=== PATIENT | female | born 1980 | race Caucasian/White ===

== ENCOUNTER 2016-10-18 02:46 | Inpatient (IN) | payer OTHER ==
[~2016-10-18] VITALS: Ht 167.6 cm; Wt 71.1 kg
[2016-10-18] VITALS (15 sets, daily range): BP systolic 103–154; BP diastolic 67–98; PULSE 124–160; TEMP 33.9–38.3; O2SAT 88–100; Ht 167.6 cm; Wt 71.1 kg
[2016-10-18] MEDS ORDERED: SODIUM CHLORIDE 0.9% 1000ML 1,000 ML IV STA ×2 (02:50→03:42)
[2016-10-18] MEDS ORDERED: NURSING VERBAL MED ORDER ONE ×2 (02:54→08:00)
[2016-10-18] MEDS ORDERED: NALOXONE HCL 0.4 MG/1 ML VIAL/CARP IV STA (02:57)
--- NOTE | 2016-10-18 03:08 | EMERGENCY ROOM VISIT NOTE ---
History Report prepared by Anai: Opal Tan Under the Supervision of: Dr. Umberto Thomason M.D. First contact with patient: 02:50 Stated Complaint: CARDIAC ARREST History of Present Illness The patient is a 36 year old female who presents to the Emergency Room with complaints of a sudden cardiac arrest that occurred prior to arrival. Per EMS the patient has a history of drug abuse and currently on Suboxone. They note that tonight, the patient was last seen well at 0045. EMS reports that the patient's family noted that the patient underwent seizure like activity and was not breathing. They report that the patient was blue upon arrival. EMS reports that the patient had vomited as well prior to arrival. They note that the patient was given 2 doses of epinephrine. The history is limited due to intubation. Source of History: patient History Limited By: intubation Onset: prior to arrival Position: other (global) Quality: other (cardiac arrest) Timing: other (sudden) Review of Systems History is limited due to intubation. Past Medical & Surgical Medical Problems: (1) Acute respiratory failure with hypoxia and hypercapnia unobtainable secondary to intubation Family History unobtainable secondary to intubation Social History Marital Status: in relationship Current/Historical Medications Scheduled Buprenorphine Hcl-Naloxone Hcl (Suboxone 8-2 Mg), 2 TABS SL DAILY Bupropion (Wellbutrin Sr), 150 MG PO BID Clonazepam (Klonopin), 1 MG PO BID Gabapentin (Neurontin), 1,200 MG PO TID Lamotrigine (Lamictal), 50 MG PO BID Omeprazole (Prilosec), 40 MG PO DAILY Phenytoin Sodium Extended (Phenytek), 100 MG PO BID Allergies Coded Allergies: No Known Allergies (Unverified , 10/18/16) Physical Exam Vital Signs Date Time Temp Pulse Resp B/P Pulse Ox O2 Delivery O2 Flow Rate FiO2 10/18/16 04:47 132 18 155/104 94 Mechanical Ventilator 60 10/18/16 04:43 124 18 152/114 94 Mechanical Ventilator 60 10/18/16 04:39 60 10/18/16 04:28 118 18 115/80 96 Mechanical Ventilator 60 10/18/16 04:13 112 18 124/81 98 Mechanical Ventilator 60 10/18/16 03:58 36.7 112 14 96/63 100 Mechanical Ventilator 60 10/18/16 03:48 110 14 137/76 100 Mechanical Ventilator 60 10/18/16 03:46 110 14 125/70 100 Mechanical Ventilator 60 10/18/16 03:38 108 14 71/41 100 Mechanical Ventilator 60 10/18/16 03:33 102 14 100 Mechanical Ventilator 60 10/18/16 03:28 36.4 112 14 88/55 100 Mechanical Ventilator 60 10/18/16 03:25 111 14 111/58 100 Mechanical Ventilator 80 10/18/16 03:10 110 12 87/48 100 Mechanical Ventilator 10/18/16 02:55 109 10/18/16 02:55 113 12 116/51 100 Mechanical Ventilator 10/18/16 02:55 80 10/18/16 02:53 36.4 109 12 54/33 100 Mechanical Ventilator Physical Exam GENERAL: Patient is unresponsive with a GCS 3T. HEENT: ET tube in place. Fixed, mildly enlarged pupils. No acute trauma, normocephalic atraumatic, mucous membranes moist, no nasal congestion, no scleral icterus. NECK: No stridor, no adenopathy, no meningismus, trachea is midline. LUNGS: No dyspnea. Clear to auscultation and equal bilaterally. No wheeze, no rhonchi. HEART: Regular rate and rhythm. No murmurs, rubs, gallops appreciated. ABDOMEN: Soft, nontender, bowel sounds positive, no masses appreciated, no peritonitis. BACK: No midline tenderness, no CVA tenderness EXTREMITIES: Normal motion all extremities, no cyanosis, no edema. NEUROLOGIC: Unresponsive GCS 3T. No movement of extremities. Pulses in all 4 extremities. SKIN: Track cummings on the bilateral forearms. No rash, no jaundice, no diaphoresis. Medical Decision & Procedures ER Provider Diagnostic Interpretation: X ray results and stated below per my interpretation and radiologist interpretation. Other radiology results and stated below per my review and radiologist interpretation: 1 view chest x-ray: mildly rotated, normal heart size, ET tube just past level of clavicles, no infiltrate, no effusion, gastric tube laying in the stomach. CT Head: Diffuse loss of jones-white differentiation compatible with cerebral edema. Relative hyperdensity along with basal cisterns may represent pseudo- subarachnoid hemorrhage but cannot exclude subarachnoid hemorrhage. Paranasal sinus disease Radiologist: Valeria Jimenez MD Study ready at 0328 and initial results transmitted at 1738 Laboratory Results 10/18/16 02:58 Red Blood Count 4.83, Mean Corpuscular Volume 86.5, Mean Corpuscular Hemoglobin 28.0, Mean Corpuscular Hemoglobin Concent 32.3, Mean Platelet Volume 9.7 10/18/16 02:58 Test 10/18/16 02:51 10/18/16 02:58 10/18/16 03:00 10/18/16 04:00 Bedside Hemoglobin 14.6 g/dl (12.0-16.0) Bedside Hematocrit 43 % (37-47) Bedside Sodium 136 mEq/L (135-144) Bedside Potassium 3.9 mEq/L (3.3-5.0) Bedside Chloride 102 mEq/L (101-112) Bedside Total CO2 11 mEq/l (24-31) Bedside Blood Urea Nitrogen 3 mg/dl (7-18) Bedside Creatinine 1.2 mg/dl (0.6-1.3) Bedside Glucose (other) 374 mg/dl (70-99) Bedside Ionized Calcium (Rowan) 1.23 mmol/l (1.12-1.32) White Blood Count 21.14 K/uL (4.8-10.8) Red Blood Count 4.83 M/uL (4.2-5.4) Hemoglobin 13.5 g/dL (12.0-16.0) Hematocrit 41.8 % (37-47) Mean Corpuscular Volume 86.5 fL (80-100) Mean Corpuscular Hemoglobin 28.0 pg (25-34) Mean Corpuscular Hemoglobin Concent 32.3 g/dl (32-36) Platelet Count 315 K/uL (130-400) Mean Platelet Volume 9.7 fL (7.4-10.4) RDW Standard Deviation 43.9 fL (36.4-46.3) RDW Coefficient of Variation 13.7 % (11.5-14.5) Neutrophils % (Manual) 54.0 % Lymphocytes % (Manual) 31.3 % Monocytes % (Manual) 6.1 % Metamyelocytes % 4.3 % Myelocytes % 4.3 % Neutrophils # (Manual) 11.42 K/uL (1.4-6.5) Total Absolute Neutrophils 11.42 K/uL (1.4-6.5) Lymphocytes # (Manual) 6.62 K/uL (1.2-3.4) Total Absolute Lymphocytes 6.62 K/uL (1.2-3.4) Monocytes # (Manual) 1.29 K/uL (0.11-0.59) Metamyelocytes # 0.91 K/uL (0-0) Myelocytes # 0.91 K/uL (0-0) Echinocytes 1+ Prothrombin Time 12.3 SECONDS (9.0-12.0) Prothromb Time International Ratio 1.1 (0.9-1.1) Activated Partial Thromboplast Time 49.3 SECONDS (21.0-31.0) Partial Thromboplastin Ratio 1.9 Arterial Blood pH 6.86 (7.35-7.45) Arterial Blood Partial Pressure CO2 59 mmHg (35-46) Arterial Blood Partial Pressure O2 131 mm/Hg (80-95) Arterial Blood HCO3 10 mmol/L (19-24) Arterial Blood Oxygen Saturation 95.1 % (90-95) Arterial Blood Base Excess -23.6 mEq/L (-9-1.8) Arterial Blood Gas Delivery 80% Pelon Test POS (POS) Anion Gap 29.0 mmol/L (3-11) Est Creatinine Clear Calc Drug Dose 39.1 ml/min Estimated GFR () 34.5 Estimated GFR (Non- 29.7 BUN/Creatinine Ratio 2.7 (10-20) Calcium Level 9.1 mg/dl (8.5-10.1) Total Bilirubin 0.2 mg/dl (0.2-1) Direct Bilirubin < 0.1 mg/dl (0-0.2) Aspartate Amino Transf (AST/SGOT) 80 U/L (15-37) Alanine Aminotransferase (ALT/SGPT) 57 U/L (12-78) Alkaline Phosphatase 135 U/L (45-117) Troponin I 0.080 ng/ml (0-0.045) Total Protein 6.8 gm/dl (6.4-8.2) Albumin 3.4 gm/dl (3.4-5.0) Beta-Hydroxybutyric Acid 0.78 mg/dL (0.2-2.81) Valproic Acid (Depakene) Level < 3 mcg/ml (50-100) Ethyl Alcohol mg/dL < 3.0 mg/dl (0-3) Urine Test NEG (NEG) Urine Opiates Screen NEG (NEG) Urine Methadone, Qualitative NEG (NEG) Urine Barbiturates NEG (NEG) Urine Phencyclidine (PCP) Level NEG (NEG) Ur Amphetamine/Methamphetamine POS (NEG) MDMA (Ecstasy) Screen POS (NEG) Urine Benzodiazepines Screen NEG (NEG) Urine Cocaine Metabolite NEG (NEG) Urine Marijuana (THC) NEG (NEG) Gastric Fluid pH 1 Gastric Fluid Occult Blood POS (NEG) Test 10/18/16 04:15 10/18/16 04:23 Bedside Glucose 288 mg/dl (70-90) Urine Color YELLOW Urine Appearance CLEAR (CLEAR) Urine pH 7.0 (4.5-7.5) Urine Specific [place] 1.009 (1.000-1.030) Urine Protein 3+ (NEG) Urine Glucose (UA) 2+ (NEG) Urine Ketones NEG (NEG) Urine Occult Blood 3+ (NEG) Urine Nitrite NEG (NEG) Urine Bilirubin NEG (NEG) Urine Urobilinogen NEG (NEG) Urine Leukocyte Esterase NEG (NEG) Urine WBC (Auto) 10-30 /hpf (0-5) Urine RBC (Auto) >30 /hpf (0-4) Urine Hyaline Casts (Auto) 1-5 /lpf (0-5) Urine Epithelial Cells (Auto) >30 /lpf (0-5) Urine Bacteria (Auto) 1+ (NEG) Urine Renal Epithelial Cells 5-10 /lpf (0-5) Laboratory results as reviewed by me. Medications Administered Medications (Trade) Dose Ordered Sig/Joya Route Start Time Stop Time Status Last Admin Dose Admin Sodium Chloride (Nss 1000ml) 1,000 ml @ 999 mls/hr Q1H1M STAT IV 10/18/16 02:50 10/18/16 03:50 DC 10/18/16 02:50 999 MLS/HR Naloxone HCl 0.4 mg 0.4 mg NOW STAT IV 10/18/16 02:57 10/18/16 02:58 DC 10/18/16 02:54 0.4 MG Norepinephrine Bitartrate/ Dextrose (Levophed Inj/ D5W 500ml) 508 ml @ 0 mls/hr Q0M STAT IV 10/18/16 03:15 10/18/16 03:16 DC 10/18/16 03:45 57.8 MLS/HR Miscellaneous Information (Nursing Verbal Med Order) 1 ea ONE ONCE N/A 10/18/16 02:54 10/18/16 03:16 DC 10/18/16 02:54 1 EA Epinephrine HCl 0.5 mg 0.5 mg NOW STAT IV 10/18/16 03:23 10/18/16 03:24 DC 10/18/16 03:34 0.5 MG Sodium Chloride (Nss 1000ml) 1,000 ml @ 250 mls/hr Q4H STAT IV 10/18/16 03:42 10/18/16 04:23 DC 10/18/16 03:46 250 MLS/HR Piperacillin Sod/ Tazobactam Sod 4.5 gm 4.5 gm NOW STAT IV 10/18/16 03:56 10/18/16 03:57 DC 10/18/16 04:16 4.5 GM Vancomycin HCl 1000 mg/Sodium Chloride 270 ml @ 125 mls/hr NOW STAT IV 10/18/16 03:56 10/18/16 06:05 DC 10/18/16 04:29 125 MLS/HR Sodium Chloride 38.5 meq/Sodium Bicarbonate 150 meq/Sterile Water 1,150 ml @ 200 mls/hr Q5H45M IV 10/18/16 04:30 11/17/16 04:29 10/18/16 04:44 200 MLS/HR Pantoprazole Sodium 80 mg/ Dextrose 120 ml @ 480 mls/hr NOW STAT IV 10/18/16 04:36 10/18/16 04:50 DC 10/18/16 05:00 480 MLS/HR Pantoprazole Sodium/Dextrose (Protonix Inj/D5 100ml) 100 ml @ 20 mls/hr Q5H IV 10/18/16 04:45 10/18/16 09:44 10/18/16 05:00 20 MLS/HR ECG Indication: toxicologic Rate (beats per minute): 120 Rhythm: sinus tachycardia Findings: ST depression (deep lateral and inferior), no ectopy ED Course 0246: The patient was evaluated in room B1. A complete history and physical exam was performed. 0250: Upon reevaluation the patient is hypotensive. She was given half an amp of epinephrine and I ordered Sodium 1000 ml @ 999 mls/hr IV. 0257: I reevaluated the patient and instructed the nurses to give Narcan. Ordered Narcan Inj 0.4 mg IV. 0300: I reevaluated the patient and she did not react to the Narcan. 0305: I discussed the patient's case with her boyfriend. He said that the patient started having seizures around 2300, and does not believe that the patient hit her head. He denies the patient vomiting, but is unsure if the patient has been taking her seizure medications. 0310: Per nursing staff the patient's blood pressure is dropping. Another dose of epinephrine was given and the patient was taken to have a CT scan. 0315: Ordered Norepinephrine Bitartrate 8 mg/Dextrose 508 ml @ 0 mls/hr protocol IV. 0320: Nursing staff is attempting to get in contact with the patient's mother. 0323: Ordered Epinephrine HCl 0.5 mg IV. 0330: I reevaluated the patient and she has a blood pressure of 110/40 mmHg and a heart rate of 110 beats per minute. She also still has GCS 3T. 0332: I discussed the patients case with Dr. Hess, Intensive Care. She states that we should try transferring the patient to [facility] for further treatment if they have room, and if not, then we will evaluate the patient here. 0342: Ordered Sodium chloride 1000 ml @ 250 mls/hr IV. 0350: I discussed the patient's case with Dr. Olivares, Critical Care - [facility]. He states that there is no benefit to the patient being transferred to their facility. He suggests that the patient is monitored here. 0353: I rediscussed the patient's case with Dr. Hess, Intensive Care. She agrees to monitor the patient here for further treatment. She would like the patient's blood sugar to be redrawn and if it is still high we can start her on an insulin drip. She would additionally like blood cultures to be obtained and would also like the patient to be started on broad spectrum antibiotics. 0356: Ordered Vancomycin HCl 1000 mg/Sodium Chloride 270 ml @ 125 mls/hr IV, Zosyn IV 4.5 gm IV. 0357: I reevaluated the patient and her status is unchanged. I discussed the treatment plan with her family and they verbalized complete understanding and agreement. The patient will be evaluated for further treatment. 0407: I discussed the patients case with RADHA Nathan. He is going to evaluate the patient for further treatment. 0420: RADHA Nathan is at the bedside of the patient. 0436: Ordered Pantoprazole Sodium 80 mg/Dextrose 120 ml @ 480 mls/hr IV. 0450: The patient is still unresponsive. I rediscussed the patients case with mother in law. She states that the up until recently the patient was living in a long-term house in [place]. She was concerned the patient started using again. A prescription bottle of Vyvanse was missing from the house and the patient has a history of IV drug abuse. 0520: The patient is being transported to the ICU at this time. Medical Decision Differential: Toxicological, Infectious, Stroke, SAH, Trauma, Electrolyte Abnormality, Hypoglycemia, Alcohol Intoxication, Drug Intoxication, Cardiac Abnormality, Sepsis, Meningitis/Encephalitis, Trauma, Excited Delirium, Serotonin Syndrome, Psychiatric, amongst other pathologies entertained. 36 yr old female arrives via EMS after being found unresponsive without a pulse at home. Somewhat odd story with boyfriend who looks intoxicated/under influence stating she had possible seizure around 11pm followed by possibility of another one. Seems there is significant multi-hour time lag between this and when boyfriend realized she was not breathing. 911 contacted and patient received periodic compressions prior to EMS arrival. On EMS arrival patient in asystol without neuro response. IO placed, multiple rounds epi given, intubated with continuous compressions on arrival. Eventually with ROSC. Transported to ED with 1 L NSS en route along with half amp epi for hypotension. On arrival patient unresponsive, GCS 3T with no neuro response. Fixed pupils, no response to painful stimuli and no attempt at breaths. Hypotension thus given another epi. Given Narcan with no response. Does have what appear to be track cummings on forearms as well. Good breath sounds bilaterally. Abdomen is not distended. IO in place left tibia. OG tube placed revealing dark black heme positive stomach contents. Unclear if this is just from her likely prolonged down time and GI bleed from that, or possibly there is tongue laceration from seizure that I can not appreciated due to ET Tube in place. CXR with clear lungs, ET Tube in place and OG tube in stomach. Patient given further fluids and sent to CT. CT head with loss moses white and edema noted. Likely artifactual SAH given amount of edema. Regardless she is at present examining like brain and with amount of edema on CT, the pH of 6.8 (already 45 minutes post intubation), her condition is severely grave and I feel that she would not benefit from transfer to tertiary care facility. I discussed this with ICU here and at [facility] and we all agree that transfer would be of no benefit at this time. We will optimize treatment here and hope for improvement though it is felt this is likely a catastrophic condition. There is no acute intervention that would be done at tertiary care facility versus at this facility. She will likely need repeat CT head at some point along with possible EEG (though with amount of brain edema, whether this would be beneficial is questionable). We will start empiric abx due to leukocytosis, though no clear evidence of infection in UA nor CXR and her symptoms earlier in day do not correlate with meningitis. She does have elevated WBC, glucose both of which are likely reactive plus the epi that was given. We were unable to contact her mother, thus much of information was given and relayed to her boyfriend's mother who was bedside throughout much of this. Consults Time Called: 033 Consulting Physician: Dr. Hess, Intensive Care Returned Call: [phone] I discussed the patients case with Dr. Hess, Intensive Care. She states that we should try transferring the patient to [facility] for further treatment if they have room, and if not, then we will evaluate the patient here. Additional Consults: Time Called: 033 Consulted Physician: Dr. Olivares, Critical Care - [facility] Returned Call: [phone] Additional Comments: I discussed the patient's case with Dr. Olivares, Critical Care - [facility]. He states that there is no benefit to the patient being transferred to their facility. He suggests that the patient is monitored here. Time Called: 040 Consulted Physician: RADHA Nathan Returned Call: [phone] Additional Comments: I discussed the patients case with RADHA Nathan. He is going to evaluate the patient for further treatment. Impression Primary Impression: Respiratory arrest Additional Impressions: Hypotension Acidosis Hyperglycemia Anoxic cerebral edema Comatose Critical Care I have personally spent greater than 125 minutes of critical care time in the direct management of this patient. This was a life/limb threatening event. This includes time spent evaluating patient, direct bedside care, chart review, placing orders, interpretation of diagnostic studies, discussion with consultants, patient, and family members, as well as other required patient management activities. This 125 minutes is in excess of all separately billable procedures. Scribe Attestation The scribe's documentation has been prepared under my direction and personally reviewed by me in its entirety. I confirm that the note above accurately reflects all work, treatment, procedures, and medical decision making performed by me. Departure Information Dispostion Being Evaluated By Hospitalist Referrals Jeovanny Lozano D.O. (PCP) Problem Qualifiers Additional Impressions: Hypotension Hypotension type: unspecified hypotension type Qualified Codes: I95.9 - Hypotension, unspecified Comatose Coma depth: Nash coma 3-8 Coma timing: in the field (EMT or ambulance) Qualified Codes: R40.2431 - Nash coma scale score 3-8, in the field [emt or ambulance]
[2016-10-18 03:13] LABS: HEMATOCRIT 41.8 % (37-47); MEAN CELL VOLUME 86.5 fL (80-100); MEAN CORPUSCULAR HGB CONC 32.3 g/dl (32-36); MEAN PLATELET VOLUME 9.7 fL (7.4-10.4); PLATELET COUNT 315 K/uL (130-400); RED BLOOD COUNT 4.83 M/uL (4.2-5.4); WHITE BLOOD COUNT 21.14 K/uL (4.8-10.8)
[2016-10-18] MEDS ORDERED: NOREPINEPHRINE BIT INJ 8 MG in DEXTROSE 5% 500ML 500 ML IV STA (03:15)
[2016-10-18 03:16] LABS: ARTERIAL BLD GAS O2 SATURATION 95.1 % (90-95); ARTERIAL BLOOD GAS BASE EXCESS -23.6 mEq/L (-9-1.8); ARTERIAL BLOOD GAS HCO3 10 mmol/L (19-24); ARTERIAL BLOOD GAS PO2 131 mm/Hg (80-95)
[2016-10-18 03:18] LABS: ISTAT CREATININE 1.2 mg/dl (0.6-1.3); ISTAT HEMOGLOBIN 14.6 g/dl (12.0-16.0); ISTAT IONIZED CALCIUM 1.23 mmol/l (1.12-1.32)
[2016-10-18 03:19] LABS: ALLEN TEST POS (POS); O2 ADMINISTRATION 80%
[2016-10-18 03:22] LABS: ARTERIAL BLOOD GAS pH 6.86 (7.35-7.45)
[2016-10-18] MEDS ORDERED: EpINEphrine INJ 1MG/ML AMP 1 MG/ML AMP IV STA (03:23)
[2016-10-18 03:31] LABS: INR 1.1 (0.9-1.1); PARTIAL THROMBOPLASTIN RATIO 1.9; PROTHROMBIN TIME (PATIENT) 12.3 SECONDS (9.0-12.0)
[2016-10-18 03:35] LABS: BENZODIAZEPINE, URINE NEG (NEG); COCAINE,URINE NEG (NEG); PHENCYCLIDINE, URINE NEG (NEG)
[2016-10-18 03:41] LABS: ALKALINE PHOSPHATASE 135 U/L (45-117); ALT/SGPT 57 U/L (12-78); AST/SGOT 80 U/L (15-37); BLOOD UREA NITROGEN 6 mg/dl (7-18); BUN/CREATININE RATIO 2.7 (10-20); CALCIUM 9.1 mg/dl (8.5-10.1); CARBON DIOXIDE 9 mmol/L (21-32); CHLORIDE 100 mmol/L (98-107); GLUCOSE 397 mg/dl (70-99); POTASSIUM 4.1 mmol/L (3.5-5.1); SODIUM 138 mmol/L (136-145)
[2016-10-18] MEDS ORDERED: PIPERACILLIN/TAZOBACTAM 4.5 GM/100ML D5W IV STA (03:56)
[2016-10-18] MEDS ORDERED: VANCOMYCIN INJ 1,000 MG in SODIUM CHLORIDE 0.9% 250ML 250 ML IV STA (03:56)
[2016-10-18 03:58] LABS: COMPLETE YES; ECHINOCYTES 1+; LYMPH ABS # 6.62 K/uL (1.2-3.4); LYMPHOCYTE % 31.3 %; META ABS # 0.91 K/uL (0-0); METAMYELOCYTE % 4.3 %; MYELOCYTE % 4.3 %
[2016-10-18 03:59] LABS: BETA-HYDROXYBUTYRATE 0.78 mg/dL (0.2-2.81)
[2016-10-18] MEDS ORDERED: BUPR1SUB23 SL (03:59)
[2016-10-18] MEDS ORDERED: CLON1TAB3 PO (04:00)
[2016-10-18] MEDS ORDERED: GABA1CAP5 PO (04:02)
[2016-10-18] MEDS ORDERED: LAMO25TA PO (04:03)
[2016-10-18] MEDS ORDERED: OMEP40CA PO (04:03)
[2016-10-18] MEDS ORDERED: PHEN300C PO (04:05)
[2016-10-18] MEDS ORDERED: PHEN200C PO (04:05)
[2016-10-18] MEDS ORDERED: BUPR-79 PO (04:06)
[2016-10-18 04:12] LABS: GASTRIC OCCULT BLOOD POS (NEG); GASTRIC OCCULT BLOOD PH 1
[2016-10-18] MEDS ORDERED: SOD CHLOR 14.6% 2.5MEQ/ML 38.5 MEQ, SODIUM BICARBONATE 8.4% INJ 150 MEQ in STERILE WATE... IV SCH (04:15)
[2016-10-18 04:28] LABS: PREG INTERNAL NEGATIVE QC NEG CLEAR BACKGROUND; PREG INTERNAL POSITIVE QC POS CONTROL LINE
[2016-10-18 04:31] LABS: URINE APPEARANCE CLEAR (CLEAR); URINE BILIRUBIN NEG (NEG); URINE COLOR YELLOW; URINE EPITHELIAL CELL AUTO >30 /lpf (0-5); URINE NITRITE NEG (NEG); URINE SPECIFIC GRAVITY 1.009 (1.000-1.030); UROBILINOGEN NEG (NEG); ZZURINE CULT IF INDIC CATH YES
[2016-10-18 04:32] LABS: MANUAL MICROSCOPIC REQUIRED? NO; REVIEW REQ? YES
[2016-10-18] MEDS ORDERED: PANTOprazole INJ 80 MG in DEXTROSE 5% 100ML IV STA (04:36)
[2016-10-18] MEDS: SOD CHLOR 14.6% 2.5MEQ/ML 38.5 MEQ, SODIUM BICARBONATE 8.4% INJ 150 MEQ in STERILE WATE... IV SCH ×2 (04:44→12:05)
[2016-10-18] MEDS ORDERED: ONDANSETRON INJ 2 MG/ML 2 ML VIAL IV PRN (04:45)
[2016-10-18] MEDS ORDERED: GLUCOSE 10 TABS/TUBE PO PRN (04:45)
[2016-10-18] MEDS ORDERED: GLUCAGON FOR INJ 1 MG VIAL SQ PRN (04:45)
[2016-10-18] MEDS ORDERED: DEXTROSE 50% 50 ML SYR IV PRN (04:45)
[2016-10-18] MEDS ORDERED: ACETAMINOPHEN IV 100 ML IV PRN (04:45)
[2016-10-18] MEDS ORDERED: GLUCOSE 40% GEL 15 GM TUBE PO PRN (04:45)
[2016-10-18] MEDS ORDERED: PANTOprazole INJ 40 MG in DEXTROSE 5% 100ML IV SCH ×2 (04:45→09:45)
[2016-10-18] MEDS ORDERED: INSULIN ASPART 100 UNITS/ML 3 ML PEN SC SCH ×4 (06:45→18:00)
--- NOTE | 2016-10-18 07:09 | History and Physical ---
History & Physical Date & Time of Service: Oct 18, 2016 at 06:56 Chief Complaint: Acute Respiratory Failure With Hypoxia And Primary Care Physician: No Doctor, Assigned History of Present Illness Source: hospital records The patient is a 36-year-old female who presents emergency department after having been found by her significant other to be nonresponsive. She was last seen well approximately 2 hours prior to being found to be nonresponsive, not breathing and without a pulse by her boyfriend. EMS was called that time, and the report that upon arrival patient was blue. The patient has a history of drug abuse and was currently on Suboxone. She was noted to have vomited prior to EMS arrival. In the field the patient was given 2 doses of epinephrine and was intubated. Her history of present illness is limited due to intubated state. Social History Smoking Status: Unknown if Ever Smoked Marital Status: in relationship Allergies Coded Allergies: No Known Allergies (Unverified , 10/18/16) Home Medications Scheduled Buprenorphine Hcl-Naloxone Hcl (Suboxone 8-2 Mg), 2 TABS SL DAILY Bupropion (Wellbutrin Sr), 150 MG PO BID Clonazepam (Klonopin), 1 MG PO BID Gabapentin (Neurontin), 1,200 MG PO TID Lamotrigine (Lamictal), 50 MG PO BID Omeprazole (Prilosec), 40 MG PO DAILY Phenytoin Sodium Extended (Phenytek), 100 MG PO BID Review of Systems Review of systems is limited due to intubated state Physical Exam Vital Signs Date Time Temp Pulse Resp B/P Pulse Ox O2 Delivery O2 Flow Rate FiO2 10/18/16 06:18 Mechanical Ventilator 60 10/18/16 06:18 33.9 124 18 117/87 92 Mechanical Ventilator 60 10/18/16 06:15 33.9 124 18 93 Mechanical Ventilator 60 10/18/16 06:13 33.9 125 18 121/90 93 Mechanical Ventilator 60 10/18/16 06:00 33.9 125 18 91 Mechanical Ventilator 60 10/18/16 05:58 33.9 126 18 118/88 92 Mechanical Ventilator 60 10/18/16 05:45 125 18 88 Mechanical Ventilator 60 10/18/16 05:43 126 16 132/89 Mechanical Ventilator 60 10/18/16 05:30 60 10/18/16 05:15 125 18 107/79 91 Mechanical Ventilator 60 10/18/16 05:15 125 18 107/79 91 10/18/16 05:00 126 18 82/64 92 Mechanical Ventilator 60 10/18/16 04:47 132 18 155/104 94 Mechanical Ventilator 60 10/18/16 04:43 124 18 152/114 94 Mechanical Ventilator 60 10/18/16 04:39 60 10/18/16 04:28 118 18 115/80 96 Mechanical Ventilator 60 10/18/16 04:13 112 18 124/81 98 Mechanical Ventilator 60 10/18/16 03:58 36.7 112 14 96/63 100 Mechanical Ventilator 60 10/18/16 03:48 110 14 137/76 100 Mechanical Ventilator 60 10/18/16 03:46 110 14 125/70 100 Mechanical Ventilator 60 10/18/16 03:38 108 14 71/41 100 Mechanical Ventilator 60 10/18/16 03:33 102 14 100 Mechanical Ventilator 60 10/18/16 03:28 36.4 112 14 88/55 100 Mechanical Ventilator 60 10/18/16 03:25 111 14 111/58 100 Mechanical Ventilator 80 10/18/16 03:10 110 12 87/48 100 Mechanical Ventilator 10/18/16 02:55 109 10/18/16 02:55 113 12 116/51 100 Mechanical Ventilator 10/18/16 02:55 80 10/18/16 02:53 36.4 109 12 54/33 100 Mechanical Ventilator The patient is on the ventilator, nonresponsive. HEENT--PERRL, OG tube in place, mucous membranes and oropharynx dry. Neck--no JVD or bruits. Heart--normal S1 and S2, no extra beats, no murmurs, rubs or gallops. Lungs--clear bilaterally. On the ventilator. Abdomen--normal bowel sounds and soft, nondistended. Extremities--no cyanosis, clubbing or edema. There are good distal pulses b/l. Dermatologic--normal skin turgor, normal color, warm and dry, no abnormal lymph nodes, no rash. Neurologic--deferred Rheumatologic--deferred Psychiatric--deferred Diagnostics Laboratory Results Results Past 24 Hours Test 10/18/16 02:51 10/18/16 02:58 10/18/16 03:00 10/18/16 04:00 Range/Units Bedside Hemoglobin 14.6 12.0-16.0 g/dl Bedside Hematocrit 43 37-47 % Bedside Sodium 136 135-144 mEq/L Bedside Potassium 3.9 3.3-5.0 mEq/L Bedside Chloride 102 101-112 mEq/L Bedside Total CO2 11 24-31 mEq/l Anion Gap 28.0 29.0 3-11 mmol/L Bedside Blood Urea Nitrogen 3 7-18 mg/dl Bedside Creatinine 1.2 0.6-1.3 mg/dl Bedside Glucose (other) 374 70-99 mg/dl Bedside Ionized Calcium (Rowan) 1.23 1.12-1.32 mmol/l White Blood Count 21.14 4.8-10.8 K/uL Red Blood Count 4.83 4.2-5.4 M/uL Hemoglobin 13.5 12.0-16.0 g/dL Hematocrit 41.8 37-47 % Mean Corpuscular Volume 86.5 80-100 fL Mean Corpuscular Hemoglobin 28.0 25-34 pg Mean Corpuscular Hemoglobin Concent 32.3 32-36 g/dl Platelet Count 315 130-400 K/uL Mean Platelet Volume 9.7 7.4-10.4 fL RDW Standard Deviation 43.9 36.4-46.3 fL RDW Coefficient of Variation 13.7 11.5-14.5 % Neutrophils % (Manual) 54.0 % Lymphocytes % (Manual) 31.3 % Monocytes % (Manual) 6.1 % Metamyelocytes % 4.3 % Myelocytes % 4.3 % Neutrophils # (Manual) 11.42 1.4-6.5 K/uL Total Absolute Neutrophils 11.42 1.4-6.5 K/uL Lymphocytes # (Manual) 6.62 1.2-3.4 K/uL Total Absolute Lymphocytes 6.62 1.2-3.4 K/uL Monocytes # (Manual) 1.29 0.11-0.59 K/uL Metamyelocytes # 0.91 0-0 K/uL Myelocytes # 0.91 0-0 K/uL Echinocytes 1+ Prothrombin Time 12.3 9.0-12.0 SECONDS Prothromb Time International Ratio 1.1 0.9-1.1 Activated Partial Thromboplast Time 49.3 21.0-31.0 SECONDS Partial Thromboplastin Ratio 1.9 Arterial Blood pH 6.86 7.35-7.45 Arterial Blood Partial Pressure CO2 59 35-46 mmHg Arterial Blood Partial Pressure O2 131 80-95 mm/Hg Arterial Blood HCO3 10 19-24 mmol/L Arterial Blood Oxygen Saturation 95.1 90-95 % Arterial Blood Base Excess -23.6 -9-1.8 mEq/L Arterial Blood Gas Delivery 80% Pelon Test POS POS Sodium Level 138 136-145 mmol/L Potassium Level 4.1 3.5-5.1 mmol/L Chloride Level 100 98-107 mmol/L Carbon Dioxide Level 9 21-32 mmol/L Blood Urea Nitrogen 6 7-18 mg/dl Creatinine 2.10 0.60-1.20 mg/dl Est Creatinine Clear Calc Drug Dose 39.1 ml/min Estimated GFR () 34.5 Estimated GFR (Non- 29.7 BUN/Creatinine Ratio 2.7 10-20 Random Glucose 397 70-99 mg/dl Calcium Level 9.1 8.5-10.1 mg/dl Total Bilirubin 0.2 0.2-1 mg/dl Direct Bilirubin < 0.1 0-0.2 mg/dl Aspartate Amino Transf (AST/SGOT) 80 15-37 U/L Alanine Aminotransferase (ALT/SGPT) 57 12-78 U/L Alkaline Phosphatase 135 45-117 U/L Troponin I 0.080 0-0.045 ng/ml Total Protein 6.8 6.4-8.2 gm/dl Albumin 3.4 3.4-5.0 gm/dl Beta-Hydroxybutyric Acid 0.78 0.2-2.81 mg/dL Valproic Acid (Depakene) Level < 3 50-100 mcg/ml Ethyl Alcohol mg/dL < 3.0 0-3 mg/dl Urine Test NEG NEG Urine Opiates Screen NEG NEG Urine Methadone, Qualitative NEG NEG Urine Barbiturates NEG NEG Urine Phencyclidine (PCP) Level NEG NEG Ur Amphetamine/Methamphetamine POS NEG MDMA (Ecstasy) Screen POS NEG Urine Benzodiazepines Screen NEG NEG Urine Cocaine Metabolite NEG NEG Urine Marijuana (THC) NEG NEG Gastric Fluid pH 1 Gastric Fluid Occult Blood POS NEG Test 10/18/16 04:15 10/18/16 04:23 Range/Units Bedside Glucose 288 70-90 mg/dl Urine Color YELLOW Urine Appearance CLEAR CLEAR Urine pH 7.0 4.5-7.5 Urine Specific [place] 1.009 1.000-1.030 Urine Protein 3+ NEG Urine Glucose (UA) 2+ NEG Urine Ketones NEG NEG Urine Occult Blood 3+ NEG Urine Nitrite NEG NEG Urine Bilirubin NEG NEG Urine Urobilinogen NEG NEG Urine Leukocyte Esterase NEG NEG Urine WBC (Auto) 10-30 0-5 /hpf Urine RBC (Auto) >30 0-4 /hpf Urine Hyaline Casts (Auto) 1-5 0-5 /lpf Urine Epithelial Cells (Auto) >30 0-5 /lpf Urine Bacteria (Auto) 1+ NEG Urine Renal Epithelial Cells 5-10 0-5 /lpf Microbiology Results 10/18/16 Blood Culture, Received Pending 10/18/16 Blood Culture, Received Pending 10/18/16 MRSA DNA Surveillance Screen, Received Pending 10/18/16 Urine Culture, Received Pending Impression Assessment and Plan Acute respiratory failure with hypoxia and hypercapnia, status post intubation in the field, with administration of 2 doses of epinephrine--the patient will be admitted to the ICU. Her pH of 6.86 after being on the ventilator for 45 minutes is a very poor prognosis. CT of the head shows significant cerebral edema with the likelihood brain . We'll consult Dr. Hess, lamp developer, and neurology to perform brain protocol. The ventilator is been adjusted while emergency department, and I have started her on 1/4 normal saline with 3 Amps of bicarbonate at 200 ML's per hour. She'll be on vancomycin IV per renal dosing, Zosyn 3.375 mg IV every 6 hours. Drug abuse history--hold Suboxone 2 tablets sublingual daily. Anxiety/depression/seizure disorder-- hold Wellbutrin, Klonopin, gabapentin, Lamictal, Phenytek. Start phenytoin 100 milligrams IV twice a day, and add Keppra 500 mg IV twice a day. Upper GI bleed--start Protonix bolus and drip protocol. Acute renal failure--We'll follow serial laboratories CBC with differential and BMP, magnesium. Level of Care Critical Care Advanced Directives Existing Advance Directive: No Existing Living Will: No Existing Power of Residential Sales Rep: No Resuscitation Status FULL RESUSCITATION VTE Prophylaxis VTE Risk Assessment Done? Y/N: Yes Risk Level: High Given or contraindicated: SCD's
[2016-10-18] MEDS ORDERED: VANCOMYCIN CONSULT ACTIVE PRN (07:11)
[2016-10-18] MEDS ORDERED: INFLUENZA VIRUS QUAD VACCINE 0.5 ML SYR IM. ONE (07:15)
[2016-10-18] MEDS ORDERED: PIPERACILL/TAZOBAC CONSULT ACTIVE PRN (07:15)
[2016-10-18] MEDS ORDERED: INFLUENZA ADMINISTRATION CHARGE ONE (07:15)
[2016-10-18 07:26] LABS: HEMATOCRIT 44.9 % (37-47); MEAN CELL VOLUME 83.3 fL (80-100); MEAN CORPUSCULAR HEMOGLOBIN 27.6 pg (25-34); MEAN PLATELET VOLUME 9.1 fL (7.4-10.4); PLATELET COUNT 292 K/uL (130-400); RED BLOOD COUNT 5.39 M/uL (4.2-5.4); WHITE BLOOD COUNT 29.22 K/uL (4.8-10.8)
[2016-10-18 07:28] LABS: MEAN CORPUSCULAR HGB CONC 33.2 g/dl (32-36)
[2016-10-18 07:35] LABS: INR 1.6 (0.9-1.1); PARTIAL THROMBOPLASTIN RATIO 1.3; PROTHROMBIN TIME (PATIENT) 17.3 SECONDS (9.0-12.0)
--- NOTE | 2016-10-18 07:39 | Progress Note ---
Subjective Date of Service: Oct 18, 2016. Subjective unfortunate case of 36 F with history of seizure disorder and past history of substance abuse, who sustained a cardiopulmonary arrest and now is ventilated with concern for severe anoxic brain injury. Events leading up to EMS arrival involve the patient possibly having some seizures at home but upon discovery by EMS was cyanotic pt is not responsive to stimuli but also not posturing, treated with antiepileptic meds and antibiotics in er Problem List Medical Problems: (1) Acidosis Status: Acute (2) Anoxic cerebral edema Status: Acute (3) Comatose Status: Acute (4) Hyperglycemia Status: Acute (5) Hypotension Status: Acute (6) Respiratory arrest Status: Acute (7) Unresponsive Status: Acute Review of Systems unresponsive state Objective Vital Signs Date Time Temp Pulse Resp B/P Pulse Ox O2 Delivery O2 Flow Rate FiO2 10/18/16 06:18 Mechanical Ventilator 60 10/18/16 06:18 33.9 124 18 117/87 92 Mechanical Ventilator 60 10/18/16 06:15 33.9 124 18 93 Mechanical Ventilator 60 10/18/16 06:13 33.9 125 18 121/90 93 Mechanical Ventilator 60 10/18/16 06:00 33.9 125 18 91 Mechanical Ventilator 60 10/18/16 05:58 33.9 126 18 118/88 92 Mechanical Ventilator 60 10/18/16 05:45 125 18 88 Mechanical Ventilator 60 10/18/16 05:43 126 16 132/89 Mechanical Ventilator 60 10/18/16 05:30 60 10/18/16 05:15 125 18 107/79 91 Mechanical Ventilator 60 10/18/16 05:15 125 18 107/79 91 10/18/16 05:00 126 18 82/64 92 Mechanical Ventilator 60 10/18/16 04:47 132 18 155/104 94 Mechanical Ventilator 60 10/18/16 04:43 124 18 152/114 94 Mechanical Ventilator 60 10/18/16 04:39 60 10/18/16 04:28 118 18 115/80 96 Mechanical Ventilator 60 10/18/16 04:13 112 18 124/81 98 Mechanical Ventilator 60 10/18/16 03:58 36.7 112 14 96/63 100 Mechanical Ventilator 60 10/18/16 03:48 110 14 137/76 100 Mechanical Ventilator 60 10/18/16 03:46 110 14 125/70 100 Mechanical Ventilator 60 10/18/16 03:38 108 14 71/41 100 Mechanical Ventilator 60 10/18/16 03:33 102 14 100 Mechanical Ventilator 60 10/18/16 03:28 36.4 112 14 88/55 100 Mechanical Ventilator 60 10/18/16 03:25 111 14 111/58 100 Mechanical Ventilator 80 10/18/16 03:10 110 12 87/48 100 Mechanical Ventilator 10/18/16 02:55 109 10/18/16 02:55 113 12 116/51 100 Mechanical Ventilator 10/18/16 02:55 80 10/18/16 02:53 36.4 109 12 54/33 100 Mechanical Ventilator Physical Exam General Appearance: WD/WN, + severe distress Eyes: + pertinent finding (pupils large and unreactive) Neck: no JVD, trachea midline Respiratory/Chest: + decreased breath sounds, + rhonchi Cardiovascular: + tachycardia, + systolic murmur Abdomen: soft, + abnormal bowel sounds Laboratory Results Last 24 Hours Test 10/18/16 02:51 10/18/16 02:58 10/18/16 03:00 10/18/16 04:00 Bedside Hemoglobin 14.6 g/dl Bedside Hematocrit 43 % Bedside Sodium 136 mEq/L Bedside Potassium 3.9 mEq/L Bedside Chloride 102 mEq/L Bedside Total CO2 11 mEq/l Anion Gap 28.0 mmol/L 29.0 mmol/L Bedside Blood Urea Nitrogen 3 mg/dl Bedside Creatinine 1.2 mg/dl Bedside Glucose (other) 374 mg/dl Bedside Ionized Calcium (Rowan) 1.23 mmol/l White Blood Count 21.14 K/uL Red Blood Count 4.83 M/uL Hemoglobin 13.5 g/dL Hematocrit 41.8 % Mean Corpuscular Volume 86.5 fL Mean Corpuscular Hemoglobin 28.0 pg Mean Corpuscular Hemoglobin Concent 32.3 g/dl Platelet Count 315 K/uL Mean Platelet Volume 9.7 fL RDW Standard Deviation 43.9 fL RDW Coefficient of Variation 13.7 % Neutrophils % (Manual) 54.0 % Lymphocytes % (Manual) 31.3 % Monocytes % (Manual) 6.1 % Metamyelocytes % 4.3 % Myelocytes % 4.3 % Neutrophils # (Manual) 11.42 K/uL Total Absolute Neutrophils 11.42 K/uL Lymphocytes # (Manual) 6.62 K/uL Total Absolute Lymphocytes 6.62 K/uL Monocytes # (Manual) 1.29 K/uL Metamyelocytes # 0.91 K/uL Myelocytes # 0.91 K/uL Echinocytes 1+ Prothrombin Time 12.3 SECONDS Prothromb Time International Ratio 1.1 Activated Partial Thromboplast Time 49.3 SECONDS Partial Thromboplastin Ratio 1.9 Arterial Blood pH 6.86 Arterial Blood Partial Pressure CO2 59 mmHg Arterial Blood Partial Pressure O2 131 mm/Hg Arterial Blood HCO3 10 mmol/L Arterial Blood Oxygen Saturation 95.1 % Arterial Blood Base Excess -23.6 mEq/L Arterial Blood Gas Delivery 80% Pelon Test POS Sodium Level 138 mmol/L Potassium Level 4.1 mmol/L Chloride Level 100 mmol/L Carbon Dioxide Level 9 mmol/L Blood Urea Nitrogen 6 mg/dl Creatinine 2.10 mg/dl Est Creatinine Clear Calc Drug Dose 39.1 ml/min Estimated GFR () 34.5 Estimated GFR (Non- 29.7 BUN/Creatinine Ratio 2.7 Random Glucose 397 mg/dl Calcium Level 9.1 mg/dl Total Bilirubin 0.2 mg/dl Direct Bilirubin < 0.1 mg/dl Aspartate Amino Transf (AST/SGOT) 80 U/L Alanine Aminotransferase (ALT/SGPT) 57 U/L Alkaline Phosphatase 135 U/L Troponin I 0.080 ng/ml Total Protein 6.8 gm/dl Albumin 3.4 gm/dl Beta-Hydroxybutyric Acid 0.78 mg/dL Valproic Acid (Depakene) Level < 3 mcg/ml Ethyl Alcohol mg/dL < 3.0 mg/dl Urine Test NEG Urine Opiates Screen NEG Urine Methadone, Qualitative NEG Urine Barbiturates NEG Urine Phencyclidine (PCP) Level NEG Ur Amphetamine/Methamphetamine POS MDMA (Ecstasy) Screen POS Urine Benzodiazepines Screen NEG Urine Cocaine Metabolite NEG Urine Marijuana (THC) NEG Gastric Fluid pH 1 Gastric Fluid Occult Blood POS Test 10/18/16 04:15 10/18/16 04:23 10/18/16 07:15 10/18/16 07:28 Bedside Glucose 288 mg/dl Urine Color YELLOW Urine Appearance CLEAR Urine pH 7.0 Urine Specific [place] 1.009 Urine Protein 3+ Urine Glucose (UA) 2+ Urine Ketones NEG Urine Occult Blood 3+ Urine Nitrite NEG Urine Bilirubin NEG Urine Urobilinogen NEG Urine Leukocyte Esterase NEG Urine WBC (Auto) 10-30 /hpf Urine RBC (Auto) >30 /hpf Urine Hyaline Casts (Auto) 1-5 /lpf Urine Epithelial Cells (Auto) >30 /lpf Urine Bacteria (Auto) 1+ Urine Renal Epithelial Cells 5-10 /lpf White Blood Count 29.22 K/uL Red Blood Count 5.39 M/uL Hemoglobin 14.9 g/dL Hematocrit 44.9 % Mean Corpuscular Volume 83.3 fL Mean Corpuscular Hemoglobin 27.6 pg Mean Corpuscular Hemoglobin Concent 33.2 g/dl RDW Standard Deviation 41.9 fL RDW Coefficient of Variation 13.8 % Platelet Count 292 K/uL Mean Platelet Volume 9.1 fL Prothrombin Time 17.3 SECONDS Prothromb Time International Ratio 1.6 Activated Partial Thromboplast Time 33.2 SECONDS Partial Thromboplastin Ratio 1.3 Assessment and Plan 36 F with acute respiratory failure with hypoxia and hypercapnia, status post intubation in the field, Acute hypercapnic Respiratory failure. CT of the head shows significant cerebral edema with the likelihood brain . We'll consult Dr. Hess, scrap hooker, and neurology to perform brain protocol. The ventilator is been adjusted while emergency department to help counter act severe acidosis, Bicarb GTT, vancomycin IV per renal dosing, Zosyn 3.375 mg IV every 6 hours. Drug abuse history--hold Suboxone 2 tablets sublingual daily. Anxiety/depression/seizure disorder-- hold Wellbutrin, Klonopin, gabapentin, Lamictal, Phenytek. Started phenytoin 100 milligrams IV twice a day, and add Keppra 500 mg IV twice a day. Upper GI bleed--start Protonix bolus and drip protocol. Acute renal failure--We'll follow serial laboratories CBC with differential and BMP, magnesium. Out look is extremely poor and family has been made aware
[2016-10-18] MEDS: ARTIFICIAL TEARS OP SOLN OP SCH ×6 (07:50→16:09)
[2016-10-18 07:56] LABS: BUN/CREATININE RATIO 5.1 (10-20); CALCIUM 7.3 mg/dl (8.5-10.1); CREATININE 1.6 mg/dl (0.60-1.20); MAGNESIUM 3.3 mg/dl (1.8-2.4); PHOSPHORUS 4.6 mg/dl (2.5-4.9)
[2016-10-18 08:08] LABS: ISTAT ARTERIAL BLOOD GAS HCO3 18 meq/L (19-24); ISTAT ARTERIAL BLOOD GAS PCO2 61 mmHg (35-46); ISTAT ARTERIAL BLOOD GAS PO2 88 mmHg (80-95); ISTAT ARTERIAL BLOOD GAS pH 7.08 (7.35-7.45); ISTAT CARBON DIOXIDE 20 mEq/l (24-31); ISTAT DELIVERY SYSTEM Ventilator; ISTAT FIO2 80 %; ISTAT PEEP 10; ISTAT RATE 18; ISTAT SITE Art Line; VE 8.3; Vt 500
--- NOTE | 2016-10-18 08:08 | DIAGNOSTIC IMAGING REPORT ---
CT OF THE HEAD WITHOUT CONTRAST CLINICAL HISTORY: Altered mental status. Cardiac arrest. COMPARISON STUDY: No previous studies for comparison. CT DOSE: 614.27 mGy.cm TECHNIQUE: Helical axial images of the head were obtained without IV contrast. Automated exposure control was utilized for the study. FINDINGS: There is diffuse loss of jones-white differentiation consistent with cerebral edema. There is relative hyperdensity along the basilar cisterns and within the fissures. This is likely artifactual. The ventricular system is small. There is no calvarial fracture. There is a small air-fluid level within the right maxillary sinus. There are secretions. There is no calvarial fracture. IMPRESSION: 1. Diffuse loss of jones-white differentiation consistent with cerebral edema which could be seen in the setting of hypoxic-ischemic cerebral injury. 2. Areas of relative increased attenuation are likely artifactual and suggest pseudo subarachnoid hemorrhage. No definite intracranial hemorrhage. Electronically signed by: Tulio Coello M.D. 10/18/2016 8:06 AM Dictated Date/Time: 10/18/2016 8:00 AM
--- NOTE | 2016-10-18 08:08 | DIAGNOSTIC IMAGING REPORT ---
CHEST ONE VIEW PORTABLE HISTORY: Altered mental status. COMPARISON: None. FINDINGS: Nasogastric tube terminates in the stomach. Endotracheal tube terminates approximately 4 cm from the naren. No pneumothorax. No pleural effusions. The heart is normal in size. The lungs are clear. No evidence for pulmonary edema. IMPRESSION: Satisfactory support line placement. Electronically signed by: Shant Spicer M.D. 10/18/2016 8:06 AM Dictated Date/Time: 10/18/2016 8:04 AM
--- NOTE | 2016-10-18 08:10 | CRITICAL CARE CONSULTATION ---
DATE OF CONSULTATION: 10/18/2016 DATE OF CONSULTATION: 10/18/2016. CHIEF COMPLAINT: Seizure. HISTORY OF PRESENT ILLNESS: The patient is a 36-year-old woman with a history of seizure disorder, depression and drug abuse who presented to the Emergency Department via EMS early this morning. The history is very unclear at this point with regard to the events that led up to her boyfriend calling 911. From what I have been able to gather from the chart and the patient's friend who spoke to the boyfriend, the patient had 3 seizures last night. She is known to have a seizure disorder and may have had her first seizure around 11:00 p.m. She had a total of 3 seizures and after the third seizure at some point it was noted that she was not breathing. EMS was summoned and the patient's friend reports that he thinks it may have taken 20-40 minutes for an ambulance to arrive. It is unclear to me how long or if chest compressions were performed. According to the Emergency Department documentation, the patient was blue when EMS arrived. She was in asystole and was given 2 doses of epinephrine by EMS. In the Emergency Department, she was unresponsive and hypotensive. She was given a total of another milligram of epinephrine as well as 0.4 mg of Narcan. She may have vomited at some point. There is a question as to whether or not she has been taking her medications. She was started on norepinephrine and received a normal saline bolus. Initially, she was given a liter and then was started at 250 mL per hour. Her NG tube drainage was very dark and Gastroccult positive. She was started on a Protonix infusion after a bolus. She underwent CT scan of the brain showing diffuse loss of jones-white differentiation compatible with cerebral edema. Relative hyperdensity along the basal cisterns may represent pseudo subarachnoid hemorrhage, but cannot exclude subarachnoid hemorrhage parasinus disease. I discussed the patient briefly with the ER attending and we elected to call [facility] to see if they thought there was any role for continuous EEG monitoring. They felt that she would not require or receive continuous EEG monitoring, so she was not transported to their facility. She is now in the intensive care unit. PAST MEDICAL HISTORY: Depression, seizure disorder, drug abuse. Her friend with whom she lives believes that she has been clean for about a year. PAST SURGICAL HISTORY: Unknown. ALLERGIES: Unknown. MEDICATIONS: Suboxone 8/2 mg 2 tabs sublingual daily, bupropion 150 mg p.o. b.i.d., clonazepam 1 mg p.o. b.i.d., gabapentin 1200 mg p.o. t.i.d., Lamictal 50 mg b.i.d., omeprazole 40 mg daily, phenytoin extended release 100 mg p.o. b.i.d. SOCIAL HISTORY: She has been living with her boyfriend at her boyfriend's friend's house and also at her boyfriend's mother's home. She is unemployed and seeking disability for her seizures. She smokes 3/4 of a pack of cigarettes per day and drinks alcohol occasionally. She has at least 3 children of which she does not have custody but supervised visits. FAMILY HISTORY: Unknown. REVIEW OF SYSTEMS: Not obtainable secondary to her intubated state and no family present. PHYSICAL EXAMINATION: VITAL SIGNS: Present temperature 33.9, blood pressure 82-117/70s-90s, pulse 112-124, respiratory rate 18, oxygen saturation 88-100%. VENTILATOR SETTINGS: Assist control rate 18, tidal volume 500, 80% FIO2, PEEP 5. HEAD, EYES, EARS, NOSE, AND THROAT: Pupils are fixed and dilated. There is an endotracheal tube and orogastric tube in place. Orogastric tube is draining coffee ground material. CHEST: Has symmetric expansion. LUNGS: Rhonchorous bilaterally with occasional expiratory wheezes. HEART: Tachycardic, regular. No murmurs. ABDOMEN: Soft, nondistended, no hepatosplenomegaly. Bowel sounds absent. EXTREMITIES: Cool with 1+ dorsalis and radial pulses bilaterally. No edema with the exception of in the hands. I do not note any track cummings on the extremities. NEUROLOGIC: She is unresponsive to sternal rub or painful stimuli. LABORATORY DATA: White blood cell count 21.14, hemoglobin 13.5, hematocrit 41.8, platelets 315, pH 6.86, pCO2 of 59, pO2 131, HCO3 10. PT 12.3, INR 1.1, PTT 49.3. Sodium 138, potassium 4.1, chloride 100, CO2 9, BUN 6, creatinine 2.1, blood sugar 397 and 288, total bilirubin 0.2, AST 80, ALT 57, alkaline phosphatase 135. Troponin I 0.08, total protein 6.8, albumin 3.4. Beta hydroxybutyric acid 0.78. Urine drug screen is positive for amphetamines and ecstasy. Valproic acid level less than 3. Alcohol less than 3. Urinalysis with 10-30 white blood cells, greater than 30 red blood cells, greater than 30 epithelial cells, 1+ bacteria. Urine is negative. Blood cultures pending. Portable chest x-ray was reviewed and shows the endotracheal tube to be at the level of the clavicles and no definite infiltrate. EKG sinus tachycardia, right atrial enlargement, ST depressions anterolaterally. IMPRESSION: 1. Status post out of hospital cardiac arrest. 2. Acute respiratory failure, presumed secondary to #1. 3. Witnessed seizure and history of seizure disorder. 4. Cerebral edema and potentially prolonged down time and I suspect resulting in significant cerebral anoxia. 5. Elevated creatinine, I suspect acute kidney injury. 6. Gastrointestinal bleed. 7. Coagulopathy. 8. Severe metabolic acidosis secondary to #1. 9. Hyperglycemia without diagnosis of diabetes mellitus. 10. Abnormal EKG with mildly elevated troponin. PLAN: NEUROLOGIC: Hold any sedatives. The neurology service has been consulted. A stat EEG has also been ordered. I suspect she may be brain . CARDIOVASCULAR: Continue to titrate Levophed for a map of 70. Rule out myocardial infarction and repeat EKG. PULMONARY: She is now on 10 of PEEP, consider repeating the chest x-ray. GASTROINTESTINAL: Continue Protonix infusion. I do not think a GI consult at this point would be appropriate given her dismal neurologic status presently. RENAL: Urine output has actually been adequate. Continue sodium bicarbonate infusion. INFECTIOUS DISEASE: She may have vomited and aspirated and she has a leukocytosis. Continue broad-spectrum antibiotics that were started in the Emergency Department and culture sputum. Hopefully, we can obtain a little bit more information once family and boyfriend arrive, however I am very concerned that she has had a catastrophic anoxic injury. I placed a left femoral triple lumen catheter and arterial line emergently. Please see my procedure notes for any details. Critical care time excluding procedures is 1 hour. [facility]
[2016-10-18] MEDS ORDERED: NOREPINEPHRINE BIT INJ 8 MG in DEXTROSE 5% 500ML 500 ML IV PRN (08:15)
[2016-10-18] MEDS ORDERED: INSULIN PROTOCOL GOAL RANGE ONE (08:15)
[2016-10-18] MEDS ORDERED: MODERATE STRESS LEVEL ONE (08:15)
[2016-10-18] MEDS ORDERED: INSULIN IV INFUSION PROTOCOL SCH (08:40)
[2016-10-18 08:58] LABS: ALKALINE PHOSPHATASE 241 U/L (45-117); ALT/SGPT 137 U/L (12-78); AST/SGOT 331 U/L (15-37)
[2016-10-18] MEDS ORDERED: LEVETIRACETAM IV 500 MG in DEXTROSE 5% 100ML 100 ML IV SCH ×4 (09:00)
[2016-10-18] MEDS ORDERED: SODIUM CHLOR 0.9% 10ML FLUSH 20 ML in SYRINGE 0 ML IV SCH (09:00)
[2016-10-18] MEDS ORDERED: PHENYTOIN IV 100 MG in SYRINGE 0 ML IV SCH (09:00)
[2016-10-18] MEDS ORDERED: INSULIN REGULAR 250 UNITS in SODIUM CHLORIDE 0.9% 250ML 250 ML IV SCH (10:00)
[2016-10-18] MEDS ORDERED: INSULIN HUMAN REGULAR IV BOLUS 2 UNIT in SYRINGE 0 ML IV SCH (10:00)
[2016-10-18] MEDS ORDERED: VANCOMYCIN INJ 1,000 MG in SODIUM CHLORIDE 0.9% 250ML 250 ML IV SCH (10:00)
[2016-10-18] MEDS ORDERED: PIPERACILL/TAZOBAC IV 4.5 GM in DEXTROSE 5% 100ML 100 ML IV SCH (10:00)
--- NOTE | 2016-10-18 11:21 | Neurology Consultation ---
Neurology Consultation Date of Consultation: Oct 18, 2016. Attending Physician: Toni Rose M.D. Primary Care Physician: No Doctor, Assigned Reason for Consultation: Brain evaluation History of Present Illness Source: clinic records, hospital records, EMS Dorys Escamilla is a 36 yo F with history of bipolar disorder, depression, and potentially seizure disorder who presented to [facility] early this morning in cardiac arrest. History gathered from review of records, including outpatient records and PDMP, as the patient is currently intubated and unresponsive. The patient apparently was on Lamictal 50mg BID and phenytoin as an outpatient, and was scheduled for a Neurology appt in December with Dr Ann. There are no previous records of hospital visits to this facility. She apparently also was taking Wellbutrin and Clonazepam, and was on Suboxone as well. Although this story is unclear, our team was told the patient had been playing video games around 11pm, had a seizure, then once the seizure resolved was playing video games again, then had another seizure, and at some point went into asystole. She was last seen well at 0045. EMS was called and upon their arrival the patient was blue, and had vomited. She was intubated and given 2 doses of epinephrine. Upon arrival to the ED, she was receiving chest compressions, received a dose of Narcan but did not have a response, and a CT head was completed (results below, but overall shows anoxic brain injury). It was attempted for the patient to be transferred to a tertiary center by the ED and ICU teams but the accepting physicians reported she could be monitored here and did not require continuous EEG monitoring. Currently, she remains intubated, and is not making any purposeful movements. She has no reaction to pain, sound, or her name being called. EEG was completed , formal results pending. She is not on any sedatives or neuromuscular blockades. She remains on a Levophed, Protonix, Vancomycin, and Zosyn drips. She did receive therapeutic cooling initially but is now being warmed and her temperature is 37C. She is tachycardic and normotensive. Further evaluation for brain is noted in examination below. Full exam was completed by Dr Ann, please refer to her note/addendum as well. Past Medical/Surgical History Medical Problems: (1) Acidosis Status: Acute (2) Anoxic cerebral edema Status: Acute (3) Comatose Status: Acute (4) Hyperglycemia Status: Acute (5) Hypotension Status: Acute (6) Respiratory arrest Status: Acute (7) Unresponsive Status: Acute Family History Unknown Social History Apparently, has recovered from substance abuse, was living at a fpc house in [place] for a while. [id number] reports concern for missing bottle of Vyvanse and reports that may be a cause. Has 3 kids, ages ranging 11-16, who are apparently in custody of paternal grandparents. Smoking Status: Former smoker Alcohol Use: unknown Marital Status: in relationship Occupation Status: disabled Allergies Coded Allergies: No Known Allergies (Unverified , 10/18/16) Current Inpatient Medications Current Inpatient Medications Medications (Trade) Dose Ordered Sig/Joya Route Start Time Stop Time Status Last Admin Dose Admin Sodium Chloride 38.5 meq/Sodium Bicarbonate 150 meq/Sterile Water 1,150 ml @ 200 mls/hr Q5H45M IV 10/18/16 04:30 11/17/16 04:29 10/18/16 04:44 200 MLS/HR Levetiracetam/ Dextrose (Keppra Iv/D5 100ml) 105 ml @ 420 mls/hr Q12 IV 10/18/16 09:00 11/17/16 08:59 10/18/16 09:42 420 MLS/HR Ondansetron HCl 4 mg 4 mg Q6H PRN IV 10/18/16 04:45 11/17/16 04:44 Acetaminophen (Ofirmev Iv) 100 ml @ 400 mls/hr Q8H PRN IV 10/18/16 04:45 11/17/16 04:44 Glucose (Glucose 40% Gel) UD PRN PO 10/18/16 04:45 11/17/16 04:44 Glucose (Glucose Chew Tab) 1 tabs UD PRN PO 10/18/16 04:45 11/17/16 04:44 Dextrose (Dextrose 50% 50ML Syringe) 50 ml UD PRN IV 10/18/16 04:45 11/17/16 04:44 Glucagon 1 mg 1 mg UD PRN SQ 10/18/16 04:45 11/17/16 04:44 Pantoprazole Sodium 40 mg/ Dextrose 100 ml @ 20 mls/hr Q5H IV 10/18/16 09:45 2/12/17 09:44 10/18/16 09:42 20 MLS/HR Phenytoin Sodium 100 mg/Syringe 2 ml @ 1 mls/min BID IV 10/18/16 09:00 11/17/16 08:59 10/18/16 09:42 1 MLS/MIN Sodium Chloride/ Syringe (Sodium Chloride 0.9% 10 ml Flush/ Syringe) 20 ml @ 0 mls/min BID IV 10/18/16 09:00 11/17/16 08:59 10/18/16 09:43 10 MLS/MIN Artificial Tears 2 drops 2 drops Q4H OP 10/18/16 07:00 11/17/16 06:59 10/18/16 07:50 2 DROPS Piperacillin Sod/ Tazobactam Sod/ Dextrose (Zosyn Iv/D5 100ml) 120 ml @ 30 mls/hr Q8H IV 10/18/16 10:00 10/25/16 09:59 10/18/16 09:43 30 MLS/HR Vancomycin HCl (Consult) 1 ea UD PRN N/A 10/18/16 07:11 11/17/16 07:10 Piperacillin Sod/ Tazobactam Sod 1 ea 1 ea UD PRN N/A 10/18/16 07:15 11/17/16 07:14 Norepinephrine Bitartrate/ Dextrose (Levophed Inj/ D5W 500ml) 508 ml @ 0 mls/hr Q0M PRN IV 10/18/16 08:15 11/17/16 08:14 Insulin Aspart SLIDING SCALE PCHS SC 10/18/16 12:00 11/17/16 11:59 Vancomycin HCl 1000 mg/Sodium Chloride 270 ml @ 125 mls/hr Q16H IV 10/18/16 10:00 10/25/16 03:59 10/18/16 10:11 125 MLS/HR Insulin Human Regular/Sodium Chloride (novoLIN-R/Nss 250ml) 252.5 ml @ 1.8 mls/hr DAILY@1130 IV 10/18/16 10:00 11/17/16 09:59 10/18/16 10:11 1.8 MLS/HR Review of Systems Unable to complete ROS due to mental status Physical Exam Vital Signs (Past 24 Hrs): Date Time Temp Pulse Resp B/P Pulse Ox O2 Delivery O2 Flow Rate FiO2 10/18/16 10:00 36.7 157 22 107/88 94 Mechanical Ventilator 80 10/18/16 08:00 34.0 142 22 103/76 92 Mechanical Ventilator 80 10/18/16 06:55 60 10/18/16 06:18 Mechanical Ventilator 60 10/18/16 06:18 33.9 124 18 117/87 92 Mechanical Ventilator 60 10/18/16 06:15 33.9 124 18 93 Mechanical Ventilator 60 10/18/16 06:13 33.9 125 18 121/90 93 Mechanical Ventilator 60 10/18/16 06:00 33.9 125 18 91 Mechanical Ventilator 60 10/18/16 05:58 33.9 126 18 118/88 92 Mechanical Ventilator 60 10/18/16 05:45 125 18 88 Mechanical Ventilator 60 10/18/16 05:43 126 16 132/89 Mechanical Ventilator 60 10/18/16 05:30 60 10/18/16 05:15 125 18 107/79 91 Mechanical Ventilator 60 10/18/16 05:15 125 18 107/79 91 10/18/16 05:00 126 18 82/64 92 Mechanical Ventilator 60 10/18/16 04:47 132 18 155/104 94 Mechanical Ventilator 60 10/18/16 04:43 124 18 152/114 94 Mechanical Ventilator 60 10/18/16 04:39 60 10/18/16 04:28 118 18 115/80 96 Mechanical Ventilator 60 10/18/16 04:13 112 18 124/81 98 Mechanical Ventilator 60 10/18/16 03:58 36.7 112 14 96/63 100 Mechanical Ventilator 60 10/18/16 03:48 110 14 137/76 100 Mechanical Ventilator 60 10/18/16 03:46 110 14 125/70 100 Mechanical Ventilator 60 10/18/16 03:38 108 14 71/41 100 Mechanical Ventilator 60 10/18/16 03:33 102 14 100 Mechanical Ventilator 60 10/18/16 03:28 36.4 112 14 88/55 100 Mechanical Ventilator 60 10/18/16 03:25 111 14 111/58 100 Mechanical Ventilator 80 10/18/16 03:10 110 12 87/48 100 Mechanical Ventilator 10/18/16 02:55 109 10/18/16 02:55 113 12 116/51 100 Mechanical Ventilator 10/18/16 02:55 80 10/18/16 02:53 36.4 109 12 54/33 100 Mechanical Ventilator General: Intubated, unresponsive Pupils: Fixed, dilated 5-6mm. No extraocular movements. No nystagmus. No corneal reflex. ENT: OG tube with dark / bloody discharge. CVS: Tachycardic. No murmur audible. Lungs: Hoarse sounds diffusely Abd: Distended. Unable to elicit tenderness. NEURO: Absence of pupillary response with bright light is noted. Absence of ocular movements with oculocephalic testing is noted. After irrigation with ice water in each ear canal, which did not elicit any movements , there were still no eye movements after 1 minute of observation. Absence of corneal reflex Absence of facial muscle movements to deep pressure of supra-orbital ridge No gag reflex per nursing staff. Apnea test not completed. EEG completed, final read pending. Reflexes in all modalities absent. Laboratory Results Past 24 Hours: 10/18/16 07:15 10/18/16 07:15 Test 10/18/16 02:51 10/18/16 02:58 10/18/16 03:00 10/18/16 04:00 Bedside Hemoglobin 14.6 g/dl (12.0-16.0) Bedside Hematocrit 43 % (37-47) Bedside Sodium 136 mEq/L (135-144) Bedside Potassium 3.9 mEq/L (3.3-5.0) Bedside Chloride 102 mEq/L (101-112) Bedside Total CO2 11 mEq/l (24-31) Bedside Blood Urea Nitrogen 3 mg/dl (7-18) Bedside Creatinine 1.2 mg/dl (0.6-1.3) Bedside Glucose (other) 374 mg/dl (70-99) Bedside Ionized Calcium (Rowan) 1.23 mmol/l (1.12-1.32) Neutrophils % (Manual) 54.0 % Lymphocytes % (Manual) 31.3 % Monocytes % (Manual) 6.1 % Metamyelocytes % 4.3 % Myelocytes % 4.3 % Neutrophils # (Manual) 11.42 K/uL (1.4-6.5) Total Absolute Neutrophils 11.42 K/uL (1.4-6.5) Lymphocytes # (Manual) 6.62 K/uL (1.2-3.4) Total Absolute Lymphocytes 6.62 K/uL (1.2-3.4) Monocytes # (Manual) 1.29 K/uL (0.11-0.59) Metamyelocytes # 0.91 K/uL (0-0) Myelocytes # 0.91 K/uL (0-0) Echinocytes 1+ Arterial Blood pH 6.86 (7.35-7.45) Arterial Blood Partial Pressure CO2 59 mmHg (35-46) Arterial Blood Partial Pressure O2 131 mm/Hg (80-95) Arterial Blood HCO3 10 mmol/L (19-24) Arterial Blood Oxygen Saturation 95.1 % (90-95) Arterial Blood Base Excess -23.6 mEq/L (-9-1.8) Arterial Blood Gas Delivery 80% Pelon Test POS (POS) Troponin I 0.080 ng/ml (0-0.045) Beta-Hydroxybutyric Acid 0.78 mg/dL (0.2-2.81) Valproic Acid (Depakene) Level < 3 mcg/ml (50-100) Ethyl Alcohol mg/dL < 3.0 mg/dl (0-3) Urine Test NEG (NEG) Urine Opiates Screen NEG (NEG) Urine Methadone, Qualitative NEG (NEG) Urine Barbiturates NEG (NEG) Urine Phencyclidine (PCP) Level NEG (NEG) Ur Amphetamine/Methamphetamine POS (NEG) MDMA (Ecstasy) Screen POS (NEG) Urine Benzodiazepines Screen NEG (NEG) Urine Cocaine Metabolite NEG (NEG) Urine Marijuana (THC) NEG (NEG) Gastric Fluid pH 1 Gastric Fluid Occult Blood POS (NEG) Test 10/18/16 04:15 10/18/16 04:23 10/18/16 07:15 10/18/16 07:55 Bedside Glucose 288 mg/dl (70-90) Urine Color YELLOW Urine Appearance CLEAR (CLEAR) Urine pH 7.0 (4.5-7.5) Urine Specific [place] 1.009 (1.000-1.030) Urine Protein 3+ (NEG) Urine Glucose (UA) 2+ (NEG) Urine Ketones NEG (NEG) Urine Occult Blood 3+ (NEG) Urine Nitrite NEG (NEG) Urine Bilirubin NEG (NEG) Urine Urobilinogen NEG (NEG) Urine Leukocyte Esterase NEG (NEG) Urine WBC (Auto) 10-30 /hpf (0-5) Urine RBC (Auto) >30 /hpf (0-4) Urine Hyaline Casts (Auto) 1-5 /lpf (0-5) Urine Epithelial Cells (Auto) >30 /lpf (0-5) Urine Bacteria (Auto) 1+ (NEG) Urine Renal Epithelial Cells 5-10 /lpf (0-5) Red Blood Count 5.39 M/uL (4.2-5.4) Mean Corpuscular Volume 83.3 fL (80-100) Mean Corpuscular Hemoglobin 27.6 pg (25-34) Mean Corpuscular Hemoglobin Concent 33.2 g/dl (32-36) RDW Standard Deviation 41.9 fL (36.4-46.3) RDW Coefficient of Variation 13.8 % (11.5-14.5) Mean Platelet Volume 9.1 fL (7.4-10.4) Prothrombin Time 17.3 SECONDS (9.0-12.0) Prothromb Time International Ratio 1.6 (0.9-1.1) Activated Partial Thromboplast Time 33.2 SECONDS (21.0-31.0) Partial Thromboplastin Ratio 1.3 Anion Gap 12.0 mmol/L (3-11) Est Creatinine Clear Calc Drug Dose 45.9 ml/min Estimated GFR () 47.9 Estimated GFR (Non- 41.3 BUN/Creatinine Ratio 5.1 (10-20) Lactic Acid Level 4.0 mmol/L (0.4-2.0) Calcium Level 7.3 mg/dl (8.5-10.1) Phosphorus Level 4.6 mg/dl (2.5-4.9) Magnesium Level 3.3 mg/dl (1.8-2.4) Total Bilirubin 0.3 mg/dl (0.2-1) Direct Bilirubin < 0.1 mg/dl (0-0.2) Aspartate Amino Transf (AST/SGOT) 331 U/L (15-37) Alanine Aminotransferase (ALT/SGPT) 137 U/L (12-78) Alkaline Phosphatase 241 U/L (45-117) Total Protein 6.7 gm/dl (6.4-8.2) Albumin 3.3 gm/dl (3.4-5.0) Blood Gas Sample Site Art Line Bedside Blood Gas pH (LAB) 7.08 (7.35-7.45) Bedside Blood Gas pCO2 (LAB) 61 mmHg (35-46) Bedside Blood Gas pO2 (LAB) 88 mmHg (80-95) Bedside Blood Gas HCO3 (LAB) 18 meq/L (19-24) Bedside Blood Gas Total CO2 20 mEq/l (24-31) Bedside Blood Gas Base Excess (LAB) -12.0 meq/L (-9-1.8) Bedside Blood Gas O2 Saturation 92.0 % (90-95) Pelon Test NA Oxygen Delivery Device Ventilator Bedside Oxygen Rate (breaths/min) 18 Blood Gas Minute Ventilation 8.3 Bedside FiO2 80 % Blood Gas Tidal Volume 500 Blood Gas PEEP 10 Date/Time Source Procedure Growth Status 10/18/16 00:00 Nasal MRSA DNA Surveillance Screen - Final Specimen Positive for MRSA by DNA Probe Complete Imaging CT Head: CT OF THE HEAD WITHOUT CONTRAST CLINICAL HISTORY: Altered mental status. Cardiac arrest. COMPARISON STUDY: No previous studies for comparison. CT DOSE: 614.27 mGy.cm TECHNIQUE: Helical axial images of the head were obtained without IV contrast. Automated exposure control was utilized for the study. FINDINGS: There is diffuse loss of jones-white differentiation consistent with cerebral edema. There is relative hyperdensity along the basilar cisterns and within the fissures. This is likely artifactual. The ventricular system is small. There is no calvarial fracture. There is a small air-fluid level within the right maxillary sinus. There are secretions. There is no calvarial fracture. IMPRESSION: 1. Diffuse loss of jones-white differentiation consistent with cerebral edema which could be seen in the setting of hypoxic-ischemic cerebral injury. 2. Areas of relative increased attenuation are likely artifactual and suggest pseudo subarachnoid hemorrhage. No definite intracranial hemorrhage. CXR: CHEST ONE VIEW PORTABLE HISTORY: Altered mental status. COMPARISON: None. FINDINGS: Nasogastric tube terminates in the stomach. Endotracheal tube terminates approximately 4 cm from the naren. No pneumothorax. No pleural effusions. The heart is normal in size. The lungs are clear. No evidence for pulmonary edema. IMPRESSION: Satisfactory support line placement. Impression 36 year old female, with history of bipolar disorder, seizure disorder, and substance abuse, who presented in cardiac arrest, and has unfortunately suffered brain on clinical examination. Plan As per primary team. Please refer to Dr Staples note / Addendum. April Schuler MD, PGY-2 Family & Community Medicine Resident Neurology attending addendum: Patient was seen and examined with resident. Pertinent portions of the exam and physical were reviewed and verified by myself. Patient presented in cardiopulmonary arrest. Reported seizure activity beforehand. Clinic chart was reviewed (but only had one outpatient recovery care note in it.) I'm uncertain whether the patient had true epilepsy with unprovoked seizures based on the limited history that I have. Patient was taking Lamictal for bipolar disorder. I do not have any history that the patient was ever seen by a neurologist in the past for her diagnosis of seizures and do not know how definite that diagnosis was as she has other risk factors for provoked seizures including being on Wellbutrin, benzodiazepine use , and history of substance abuse including Vyvanse (which can cause seizures). CT of the head report and images reviewed by myself and has loss of jones white junction suggesting diffuse anoxic brain injury. EEG was read by myself and showed diffuse attenuation with rare possible low amplitude delta and theta activity. Exam: Exam was performed between 9 and 9:30 AM There was no sedation or neuromuscular blocking agents. Patient's temperature was 36.8C at the time of the examination. No metabolic derangements that that should significantly affect exam. Mental status: Patient is obtunded and unresponsive. The patient did not respond to voice, sound, or noxious stimuli from deep nail bed pressure, sternal rub, and orbital pressure. Pupils were 7-8 mm and equal. There was no pupil reaction to light. Absent corneal response bilaterally. Absent jaw reflux No ocular cephalic response Auditory canals were patent. No response to cold calorics bilaterally. No gag response to endotracheal suction No biceps, brachioradialis, or patellar reflexes obtained. No response to plantar stimulation. There was no response or movement to deep nailbed pressure in all 4 extremities. Assessment and recommendations: Overall my exam is consistent with neurological brain . I did not do an apnea test and it is my understanding that the ICU attending will repeat a brain examination with apnea test. Neurological prognosis is dismal and I do not anticipate any meaningful neurological recovery. Thank you for allowing me to participate in this patient's care. If there is any questions or concerns, feel free to call/page me Resident Tracking Resident Involvement: Resident Care Provided Care Provided: Adult Hospital Medicine (Neurology)
--- NOTE | 2016-10-18 12:04 | EEG Procedure Note ---
EEG Procedure Note Date of Service Oct 18, 2016. Start / End Times Start Time: 7:44 AM End Time: 8:04 AM Referring Physician Heather Ann History This is a 36-year-old female who presented with cardiopulmonary arrest, seizure , and anoxic brain injury. EEG to rule out nonconvulsive status. Home Medication List Scheduled Buprenorphine Hcl-Naloxone Hcl (Suboxone 8-2 Mg), 2 TABS SL DAILY Bupropion (Wellbutrin Sr), 150 MG PO BID Clonazepam (Klonopin), 1 MG PO BID Gabapentin (Neurontin), 1,200 MG PO TID Lamotrigine (Lamictal), 50 MG PO BID Omeprazole (Prilosec), 40 MG PO DAILY Phenytoin Sodium Extended (Phenytek), 100 MG PO BID Inpatient Medication List Current Inpatient Medications Medications (Trade) Dose Ordered Sig/Joya Route Start Time Stop Time Status Last Admin Dose Admin Sodium Chloride 38.5 meq/Sodium Bicarbonate 150 meq/Sterile Water 1,150 ml @ 200 mls/hr Q5H45M IV 10/18/16 04:30 11/17/16 04:29 10/18/16 04:44 200 MLS/HR Levetiracetam/ Dextrose (Keppra Iv/D5 100ml) 105 ml @ 420 mls/hr Q12 IV 10/18/16 09:00 11/17/16 08:59 10/18/16 09:42 420 MLS/HR Ondansetron HCl 4 mg 4 mg Q6H PRN IV 10/18/16 04:45 11/17/16 04:44 Acetaminophen (Ofirmev Iv) 100 ml @ 400 mls/hr Q8H PRN IV 10/18/16 04:45 11/17/16 04:44 Glucose (Glucose 40% Gel) UD PRN PO 10/18/16 04:45 11/17/16 04:44 Glucose (Glucose Chew Tab) 1 tabs UD PRN PO 10/18/16 04:45 11/17/16 04:44 Dextrose (Dextrose 50% 50ML Syringe) 50 ml UD PRN IV 10/18/16 04:45 11/17/16 04:44 Glucagon 1 mg 1 mg UD PRN SQ 10/18/16 04:45 11/17/16 04:44 Pantoprazole Sodium 40 mg/ Dextrose 100 ml @ 20 mls/hr Q5H IV 10/18/16 09:45 11/17/16 09:44 10/18/16 09:42 20 MLS/HR Phenytoin Sodium 100 mg/Syringe 2 ml @ 1 mls/min BID IV 10/18/16 09:00 11/17/16 08:59 10/18/16 09:42 1 MLS/MIN Sodium Chloride/ Syringe (Sodium Chloride 0.9% 10 ml Flush/ Syringe) 20 ml @ 0 mls/min BID IV 10/18/16 09:00 11/17/16 08:59 10/18/16 09:43 10 MLS/MIN Artificial Tears 2 drops 2 drops Q4H OP 10/18/16 07:00 11/17/16 06:59 10/18/16 07:50 2 DROPS Piperacillin Sod/ Tazobactam Sod/ Dextrose (Zosyn Iv/D5 100ml) 120 ml @ 30 mls/hr Q8H IV 10/18/16 10:00 10/25/16 09:59 10/18/16 09:43 30 MLS/HR Vancomycin HCl (Consult) 1 ea UD PRN N/A 10/18/16 07:11 11/17/16 07:10 Piperacillin Sod/ Tazobactam Sod 1 ea 1 ea UD PRN N/A 10/18/16 07:15 11/17/16 07:14 Norepinephrine Bitartrate/ Dextrose (Levophed Inj/ D5W 500ml) 508 ml @ 0 mls/hr Q0M PRN IV 10/18/16 08:15 11/17/16 08:14 10/18/16 11:08 68 MLS/HR Insulin Aspart SLIDING SCALE PCHS SC 10/18/16 12:00 11/17/16 11:59 Vancomycin HCl 1000 mg/Sodium Chloride 270 ml @ 125 mls/hr Q16H IV 10/18/16 10:00 10/25/16 03:59 10/18/16 10:11 125 MLS/HR Insulin Human Regular/Sodium Chloride (novoLIN-R/Nss 250ml) 252.5 ml @ 1.8 mls/hr DAILY@1130 IV 10/18/16 10:00 11/17/16 09:59 10/18/16 10:11 1.8 MLS/HR Description This is a 21 electrode EEG with a single channel dedicated to limited EKG. The electrodes were placed in accordance with the International 10-20 system. At the start of this recording the patient was intubated and unresponsive. There was no sedating medications. The patient is on Dilantin and Keppra. Background showed no organization and was diffusely attenuated (<15uV and often <10uV). There was rare brief low to moderate amplitude delta and theta frequencies seen in the background. Hyperventilation photic stimulation were not done. There was no state changes. There was no clear variability or reactivity. Interpretation This is an abnormal routine EEG secondary to severe background disorganization and attenuation. There was no electrographic seizures or epileptiform discharges. Clinical Correlation This EEG indicates severe diffuse cerebral dysfunction and would be consistent with a diffuse anoxic brain injury. This EEG was not done as a brain confirmatory EEG, nor would it meet EEG brain criteria as there was rare episodes of what appeared to be possible delta or theta activity (in the ICU setting could also potentially be artifact).
[2016-10-18 12:28] LABS: HEMATOCRIT 44.9 % (37-47)
--- NOTE | 2016-10-18 12:38 | Pharmacy Progress Note ---
Pharmacy Antibiotic Consult Date of Service: Oct 18, 2016. Pharmacy Dosing Scope Pharmacy is consulted to initiate vancomycin and piperacillin/tazobactam IV dosing therapy, order appropriate labs and adjust drug dose/frequency. Subjective The patient is a 36 year old female admitted on Oct 18, 2016 at 04:50. Objective Height (Feet): 5 Height (Inches): 6.00 Weight (Kilograms): 71.100 Lab Results (24hrs): Laboratory Tests Test 10/18/16 02:58 10/18/16 07:15 BUN/Creatinine Ratio 2.7 5.1 Blood Urea Nitrogen 6 mg/dl 8 mg/dl Creatinine 2.10 mg/dl 1.60 mg/dl White Blood Count 21.14 K/uL 29.22 K/uL Red Blood Count 4.83 M/uL Hemoglobin 13.5 g/dL Hematocrit 41.8 % Mean Corpuscular Volume 86.5 fL Mean Corpuscular Hemoglobin 28.0 pg Mean Corpuscular Hemoglobin Concent 32.3 g/dl Platelet Count 315 K/uL Mean Platelet Volume 9.7 fL Micro Results: Item Value Date Time MRSA DNA Surveillance Screen - Final Complete 10/18/16 0000 Nasal Specimen Positive for MRSA by DNA Probe Blood Culture Received 10/18/16 0415 Blood Pending Blood Culture Received 10/18/16 0415 Blood Pending Urine Culture Received 10/18/16 0423 Urine,Catheterized Pending Assessment & Plan Assessment: * 36 year old female with acute respiratory failure with hypoxia and hypercapnia , status post intubation in the field * patient with leukocytosis and questionable vomitus prior to arrival * to be started on empiric antibiotics in the form of vancomycin and piperacillin/tazobactam Plan: Vancomycin: * Loading dose: 1000 mg IV X 1 dose (given in ED) * Maintenance dose: 1000 mg IV every 16 hours * may need adjusted as renal function improves * trough level timing will be determined based on SCr on 10/19/16 Piperacillin/tazobactam: * Loading dose: 4.5 g IV x1 dose (given in ED) * Maintenance dose: 4.5 g IV every 8 hours (infused over 4 hours) * no dose adjustment needed for CrCl above 20mL/min Pharmacy will continue to follow and will adjust dose/frequency as necessary. Thank you
[2016-10-18 13:10] LABS: ISTAT ARTERIAL BLOOD GAS HCO3 22 meq/L (19-24); ISTAT ARTERIAL BLOOD GAS PCO2 59 mmHg (35-46); ISTAT ARTERIAL BLOOD GAS PO2 177 mmHg (80-95); ISTAT ARTERIAL BLOOD GAS pH 7.18 (7.35-7.45); ISTAT CARBON DIOXIDE 24 mEq/l (24-31); ISTAT DELIVERY SYSTEM Ventilator; ISTAT FIO2 80 %; ISTAT PEEP 10; ISTAT RATE 22; ISTAT SITE Art Line; VE 10.4; Vt 500
[2016-10-18 13:16] LABS: CKMB/CK RATIO 2.7 (0-3.0)
--- NOTE | 2016-10-18 13:23 | Pharmacy Progress Note ---
Glycemic Control Intl Consult Date of Service Oct 18, 2016. Scope Glycemic Pharmacist consulted by Dr Hess on 10/18/16 for glycemic control and to write orders per [facility] inpatient glycemic control protocol Objective Weight (Kilograms): 71.100 Accuchecks BSG (last 24hrs): Test 10/18/16 02:58 10/18/16 04:15 10/18/16 07:15 Random Glucose 397 mg/dl (70-99) 199 mg/dl (70-99) Bedside Glucose 288 mg/dl (70-90) Laboratory Data (last 24hrs) Test 10/18/16 02:51 10/18/16 02:58 10/18/16 07:15 Anion Gap 28.0 mmol/L 29.0 mmol/L 12.0 mmol/L BUN/Creatinine Ratio 2.7 5.1 Blood Urea Nitrogen 6 mg/dl 8 mg/dl Creatinine 2.10 mg/dl 1.60 mg/dl Potassium Level 4.1 mmol/L 4.0 mmol/L Sodium Level 138 mmol/L 141 mmol/L White Blood Count 21.14 K/uL 29.22 K/uL Red Blood Count 4.83 M/uL Hemoglobin 13.5 g/dL Hematocrit 41.8 % Mean Corpuscular Volume 86.5 fL Mean Corpuscular Hemoglobin 28.0 pg Mean Corpuscular Hemoglobin Concent 32.3 g/dl Platelet Count 315 K/uL Mean Platelet Volume 9.7 fL Recent Pertinent Medications Outpatient Anti-diabetic Regimen: * n/a The patient is currently receiving: * Basal insulin: none at this time * Correctional Insulin: NovoLog Correction per scale AC/HS Goal Range: Low 100 mg/dL - High 150 mg/dL Correction Factor: 30 mg/dL/unit * Prandial insulin: Per carb ratio of 1 unit per 10 grams CHO consumed Risk Factors for Insulin Resistance: * Steroids: none * Infection: ?aspiration pneumonia/sepsis - current regimen includes vancomycin and piperacillin/tazobactam * Pressors: norepinephrine * IVF: levetiracetam IV, 1/4NS+ bicarb, pantoprazole gtt * Recent Surgery n/a * Diet: NPO * Mechanical Ventilation: [employer] Assessment & Plan ASSESSMENT: * ADA & AACE recommend a goal blood sugar range 140-180 mg/dl for the majority of critically ill & non-critically ill patients. However, more stringent targets may be selected in individual cases. 10/18/16 * 36 year old female with acute respiratory failure with hypoxia and hypercapnia , status post intubation in the field * patient with leukocytosis and questionable vomitus prior to arrival * This morning, BSGs above goal range. currently critically ill and requiring intubation and IV vasopressors. * In the critical care setting, continuous IV insulin infusion has been shown to be the best method for achieving glycemic targets PLAN FOR INPATIENT GLYCEMIC CONTROL: * Starting IV insulin infusion per moderate stress protocol * Goal Range 140 - 180 mg/dl After initial bolus given, Ms Ma became hypoglycemia --> 1 amp of D50 given. At this time I have revised my plan and shared it with Nena. * Continue to hold insulin infusion and check BSGs hourly x2 * resume insulin infusion at a reduced rate of 1 mL/hr if BSG above 180mg/dL * if BSGs remain below 180mg/dL discontinue insulin infusion and transition back to NovoLog SQ every 6 hours with a goal range of 140-180mg/dL and a correction factor of 35mg/dL/unit. * Please note that the plan above was derived based on current level of insulin resistance and hospital stress. These recommendations are appropriate for inpatient admission only. Plan of care upon discharge will need to be reassessed to avoid potential outpatient hypo/hyperglycemia. Thank you.
[2016-10-18] MEDS ORDERED: PHARMACY GLYCEMIC MGMT CONSULT PRN (13:30)
[2016-10-18 14:45] LABS: HEMATOCRIT 45.5 % (37-47); MEAN CORPUSCULAR HEMOGLOBIN 28.6 pg (25-34); MEAN CORPUSCULAR HGB CONC 33.6 g/dl (32-36); MEAN PLATELET VOLUME 8.8 fL (7.4-10.4); PLATELET COUNT 151 K/uL (130-400); RED BLOOD COUNT 5.35 M/uL (4.2-5.4); WHITE BLOOD COUNT 38.93 K/uL (4.8-10.8)
[2016-10-18 15:12] LABS: BUN/CREATININE RATIO 6.6 (10-20); CALCIUM 6.9 mg/dl (8.5-10.1); CREATININE 2.2 mg/dl (0.60-1.20); POTASSIUM 3.4 mmol/L (3.5-5.1)
[2016-10-18 15:15] LABS: ISTAT ARTERIAL BLOOD GAS HCO3 22 meq/L (19-24); ISTAT ARTERIAL BLOOD GAS PCO2 51 mmHg (35-46); ISTAT ARTERIAL BLOOD GAS PO2 235 mmHg (80-95); ISTAT ARTERIAL BLOOD GAS pH 7.25 (7.35-7.45); ISTAT CARBON DIOXIDE 24 mEq/l (24-31); ISTAT DELIVERY SYSTEM Ventilator; ISTAT FIO2 80 %; ISTAT PEEP 8; ISTAT RATE 25; ISTAT SITE Art Line; VE 13; Vt 550
[2016-10-18] MEDS ORDERED: SODIUM BICARBONATE 8.4% INJ 150 MEQ in DEXTROSE 5% 1000ML 1,000 ML IV SCH (15:30)
[2016-10-18] MEDS ORDERED: NALOXONE HCL INJ 0.4 MG/1 ML VIAL/CARP IV ONE (15:58)
[2016-10-18 16:14] LABS: ISTAT ARTERIAL BLOOD GAS HCO3 28 meq/L (19-24); ISTAT ARTERIAL BLOOD GAS PCO2 > 115 mmHg (35-46); ISTAT ARTERIAL BLOOD GAS PO2 184 mmHg (80-95); ISTAT ARTERIAL BLOOD GAS pH 6.99 (7.35-7.45); ISTAT CARBON DIOXIDE 31 mEq/l (24-31); ISTAT DELIVERY SYSTEM Cannula; ISTAT SITE Art Line
--- NOTE | 2016-10-18 18:10 | Progress Note ---
Progress Note Third Shift Lieutenant: Family is interested in organ donation. I have introduced them to Soren Schroeder from [facility] and have spoken to him as well. He has agreed to manage this patient using his standard protocols from here on out should organ donation become a reality. Discussions are presently underway and any orders under my name in the future will not going to be given directly by me. They are originating from the protocols and my name is being used in order to assist in the organ donation process.
--- NOTE | 2016-10-18 18:24 | CRITICAL CARE PROGRESS NOTE ---
DATE: 10/18/2016 The patient's care was discussed in detail on multidisciplinary rounds this morning. I have been in and out of her room throughout the day. Her Levophed was increased to 0.3mcg per kilogram per minute and she was persistently tachycardic in the 140's t- 160's. She has not been on any sedation whatsoever. Many thanks to the neurology service for their assistance in her care and of note, they did do a brain testing earlier today. EEG result is noted. She is receiving an sodium bicarbonate infusion. I discussed the patient's care with her family, particularly her mother with regard to brain testing and my need to do a second evaluation this afternoon. I expressed my concern that it was not going to be a favorable result and that she likely had suffered and catastrophic brain injury. OBJECTIVE: VITAL SIGNS: Temperature 38.3, heart rate 145-159, respiratory rate on the ventilator 25, blood pressure 126/67, oxygen saturation 100%, ventilator settings assist control, tidal volume 600, rate 25, FIO2 100%, PEEP 5. The patient was preoxygenated with 100% FIO2 prior to my examination. Her labs for this afternoon were reviewed and she showed she did not have any major electrolyte abnormalities that should interfere with the testing. On my exam, her pupils were both fixed and dilated, and nonreactive to light. Corneal reflexes were absent. The oculocephalic reflex was absent. Oculovestibular reflex, absent. No facial movement to noxious stimuli at supraorbital nerve. No gag reflex. No cough reflex with suctioning the endotracheal tube. No response to painful stimuli in all 4 extremities. An apnea test was performed. I was unable to blow her CO2 down below 51 at the start of the test. She was placed on a 6-liter oxygen tubing through her endotracheal tube for 10 minutes. Her initial ABG showed pH 7.25, pCO2 51, pO2 235 HCO3 22 and after 10 minutes off the ventilator, no respiratory movement whatsoever was witnessed. Her arterial blood gas showed pH 6.99 PCo2 >115 PO2 184 HCO3 28. Impression: 1. Prolonged cardiopulmonary arrest and anoxic brain injury 2. Witnessed seizures - known seizure disorder 3. Asystolic arrest 4. Acute kidney injury due to ATN/hypotension 5. Shock liver 6. Brain 7. Possible GI bleed 8. Severe metabolic acidosis Plan: She was pronounced at 1559. Questions were answered and support was provided. I offered to introduce them to someone who could speak about the potential for organ donation. They initially declined and then expressed interest. Critical Care time 90 min. She was pronounced at 1559 and I informed her family. Questions were answered and support was provided. Critical Care time 60 minutes. LISA
--- NOTE | 2016-10-18 18:59 | CRITICAL CARE PROGRESS NOTE ---
DATE: 10/18/2016 Dictation is duplicate and has been erased. MTDD
--- NOTE | 2016-10-18 19:05 | Death Summary ---
Summary of Admission Date Oct 18, 2016 at 04:50 Date & Time of Oct 18, 2016. 1559 Cause of Anoxic Brain injury, seizure Hospital Course 36 F arrived in acute respiratory failure after prolonged apneic episode, description from family of possible seizure at home, as pt has history of seizure disorder. EMS notified and upon arrival pt was apneic and cyanotic. Resuscitation initiated and cpr ensued, pt was profoundly acidemic upon arrival , also hypothermic. Pt was warmed and ventilated, attempts at correcting serology were made. Family at bedside and updated thru day. Imaging showed changes of brain consistent with profound anoxic injury, Neurology eval with EEG suggested lack of organized activity. Apnea test performed by intensive care team, no respiratory effort was seen Pt was pronounced brain by Dr Hess at 1559 hours 10/18/16. [facility] is active with this patient and will proceed via protocol toward donation.
[2016-10-18 22:37] LABS: ISTAT ARTERIAL BLOOD GAS HCO3 24 meq/L (19-24); ISTAT ARTERIAL BLOOD GAS PCO2 49 mmHg (35-46); ISTAT ARTERIAL BLOOD GAS PO2 403 mmHg (80-95); ISTAT ARTERIAL BLOOD GAS pH 7.31 (7.35-7.45); ISTAT CARBON DIOXIDE 26 mEq/l (24-31); ISTAT DELIVERY SYSTEM Ventilator; ISTAT FIO2 100 %; ISTAT PEEP 8; ISTAT RATE 25; ISTAT SITE Art Line; VE 14.3; Vt 600
--- NOTE | 2016-10-18 23:06 | OPERATIVE REPORT ---
DATE OF OPERATION: 10/18/2016 PROCEDURE: Left femoral triple lumen catheter and arterial line placement. TIME OF PROCEDURE: Approximately 5:30 a.m. PREPROCEDURE DIAGNOSIS: Status post cardiopulmonary arrest. POSTPROCEDURE DIAGNOSIS: Same. INDICATION: Hypotension and need for vasopressors as well as continuous blood pressure monitoring. DESCRIPTION OF PROCEDURE: This procedure was done emergently due to the patient's severity of illness. She had a prolonged cardiac arrest and was resuscitated. She was hypotensive with poor IV access on arrival to the intensive care unit. A timeout was performed and I donned a hat mask, sterile gown and sterile gloves. The left groin, thigh and left lower quadrant were prepared with chlorhexidine. She was draped in sterile fashion. Using the ultrasound, I was able to identify the left femoral vein which I cannulated with an 18-gauge needle. I then placed a wire through the needle and the needle was removed. A #11 scalpel blade was used to make a skye in the skin adjacent to the wire and then the vein was dilated using the dilator from the [employer] triple lumen kit. The dilator was removed and the triple lumen catheter was placed over the wire. The wire was then removed. All 3 ports had good blood flow and flushed easily. I then used a 20-gauge needle from the Arrow 10 cm arterial line kit to cannulate the left femoral artery. I placed a wire through the needle and the needle was removed. The 10 cm arterial catheter was placed over the wire and the wire was removed. The line was then attached to a transducer. Both lines were sutured in place using 3-0 silk on a straight needle. The triple lumen catheter flushed easily. A dressing was applied. There were no complications and hemostasis was achieved. I attest to the content of the Intraoperative Record and any orders documented therein. Any exceptio ns are noted below.
[2016-10-18 23:14] LABS: ISTAT ARTERIAL BLOOD GAS HCO3 24 meq/L (19-24); ISTAT ARTERIAL BLOOD GAS PCO2 54 mmHg (35-46); ISTAT ARTERIAL BLOOD GAS PO2 344 mmHg (80-95); ISTAT ARTERIAL BLOOD GAS pH 7.27 (7.35-7.45); ISTAT CARBON DIOXIDE 26 mEq/l (24-31); ISTAT DELIVERY SYSTEM Ventilator; ISTAT FIO2 100 %; ISTAT PEEP 8; ISTAT RATE 18; ISTAT SITE Art Line; VE 10.2; Vt 600
[2016-10-19 00:22] LABS: ISTAT ARTERIAL BLOOD GAS HCO3 19 meq/L (19-24); ISTAT ARTERIAL BLOOD GAS PCO2 37 mmHg (35-46); ISTAT ARTERIAL BLOOD GAS PO2 72 mmHg (80-95); ISTAT ARTERIAL BLOOD GAS pH 7.33 (7.35-7.45); ISTAT CARBON DIOXIDE 20 mEq/l (24-31); ISTAT DELIVERY SYSTEM Ventilator; ISTAT FIO2 50 %; ISTAT PEEP 8; ISTAT RATE 28; ISTAT SITE Art Line; VE 16.2; Vt 600
[2016-10-19 03:28] LABS: ISTAT ARTERIAL BLOOD GAS HCO3 21 meq/L (19-24); ISTAT ARTERIAL BLOOD GAS PCO2 38 mmHg (35-46); ISTAT ARTERIAL BLOOD GAS PO2 363 mmHg (80-95); ISTAT ARTERIAL BLOOD GAS pH 7.36 (7.35-7.45); ISTAT CARBON DIOXIDE 23 mEq/l (24-31); ISTAT DELIVERY SYSTEM Ventilator; ISTAT FIO2 100 %; ISTAT PEEP 8; ISTAT RATE 28; ISTAT SITE Art Line; VE 16.1; Vt 600
[2016-10-19 06:08] LABS: ISTAT ARTERIAL BLOOD GAS HCO3 19 meq/L (19-24); ISTAT ARTERIAL BLOOD GAS PCO2 28 mmHg (35-46); ISTAT ARTERIAL BLOOD GAS PO2 98 mmHg (80-95); ISTAT ARTERIAL BLOOD GAS pH 7.43 (7.35-7.45); ISTAT CARBON DIOXIDE 19 mEq/l (24-31); ISTAT DELIVERY SYSTEM Ventilator; ISTAT FIO2 50 %; ISTAT PEEP 8; ISTAT RATE 28; ISTAT SITE Art Line; VE 16; Vt 600
[2016-10-19] MEDS ORDERED: NURSING VERBAL MED ORDER ONE (07:30)
== END 2016-10-18 15:59 | disposition expired | DRG 296 ==
LOC: ENRESERVTM → ENRESERVDT → EDBD 02:46 → C.EDB 02:50 → C.MSICU 04:50
PROVIDERS: ADMIT Hospitalist; ATTEND Internal Medicine
PROC: 5A1935Z Respiratory Ventilation, Less than 24 Consecutive Hours (ICD-10-PCS; principal; 2016-10-18)
PROC: 4A133B1 Monitoring of Arterial Pressure, Peripheral, Percutaneous Approach (ICD-10-PCS; 2016-10-18)
PROC: 06HN33Z Insertion of Infusion Device into Left Femoral Vein, Percutaneous Approach (ICD-10-PCS; 2016-10-18)
PROC: 0T9B70Z Drainage of Bladder with Drainage Device, Via Natural or Artificial Opening (ICD-10-PCS; 2016-10-18)
DX: I46.9 Cardiac arrest, cause unspecified (principal); J96.01 Acute respiratory failure with hypoxia; J96.02 Acute respiratory failure with hypercapnia; N17.0 Acute kidney failure with tubular necrosis; K72.01 Acute and subacute hepatic failure with coma; G93.1 Anoxic brain damage, not elsewhere classified; K92.2 Gastrointestinal hemorrhage, unspecified; E87.4 Mixed disorder of acid-base balance; F11.20 Opioid dependence, uncomplicated; G40.909 Epilepsy, unspecified, not intractable, without status epilepticus; R73.9 Hyperglycemia, unspecified; I95.9 Hypotension, unspecified; F31.9 Bipolar disorder, unspecified; F41.9 Anxiety disorder, unspecified; F17.210 Nicotine dependence, cigarettes, uncomplicated; Z79.899 Other long term (current) drug therapy